=== PATIENT | female | born 1950 | race African-American/Black ===

== ENCOUNTER 2018-03-02 17:16 | Inpatient (IN) | payer MEDICARE, OTHER ==
[~2018-03-02] VITALS: Ht 166.4 cm; Wt 107.5 kg
--- NOTE | 2018-03-02 17:42 | PHYS DOC ---
Adult General Chief Complaint Chief Complaint: WOUND CHECK HPI HPI Patient is a 67 year old female who presents from the long term where she resides with complaints of a right foot wound. The patient has had the wound for many weeks. [facility] staff reported that the wound has not been improving and sent the patient to the emergency department for admission and wound care consultation. The patient has diabetic neuropathy. She does not complain of any pain in the area. Patient denies fevers chills. She denied chest pain or shortness of breath. She is noted have lower extremity edema bilaterally which is worse in the foot of concern. She does not endorse any worsening orthopnea or shortness of breath symptoms. At baseline, the patient primarily ambulates with a wheelchair but states she is able to walk with assistance as well. Review of Systems Review of Systems Constitutional: Denies fever Eyes: Denies change in visual acuity HENT: Denies Respiratory: Denies Cardiovascular: No additional info GI: Denies abdominal pain : Denies dysuria Musculoskeletal: Denies back pain Integument: Denies rash Neurologic: Denies headache Endocrine: Denies polyuria All other systems were reviewed and found to be within normal limits, except as documented in this note. Current Medications Current Medications Allergies Allergies Physical Exam Physical Exam Constitutional: Well developed, well nourished, no acute distress HENT: Normocephalic, atraumatic, bilateral external ears normal Eyes: PERRLA, EOMI, conjunctiva normal Neck: Normal range of motion, no tenderness Cardiovascular:Heart rate regular rhythm, no murmur Lungs & Thorax: Bilateral breath sounds clear to auscultation Abdomen: Bowel sounds normal, soft, no tenderness Skin: Warm, dry, no erythema, no rash Back: No tenderness, no CVA tenderness Extremities: Bilateral lower extremity edema. Over the medial aspect of the right heel there is a clean and dry dressing. When removed, there is a 5 x 6 cm hemorrhagic bulla. There is no sign of infection. Psychologic: Affect normal, judgement normal, mood normal Current Patient Data Vital Signs Vital Signs Date Time Temp Pulse Resp B/P (MAP) Pulse Ox O2 Delivery O2 Flow Rate FiO2 03/02/18 17:28 98.3 91 18 152/71 (98) 91 Room Air 98.3 Lab Values Laboratory Tests Test 03/02/18 17:50 White Blood Count 11.7 x10^3/uL (4.0-11.0) H Red Blood Count 4.19 x10^6/uL (3.50-5.40) Hemoglobin 11.6 g/dL (12.0-15.5) L Hematocrit 35.0 % (36.0-47.0) L Mean Corpuscular Volume 84 fL (79-100) Mean Corpuscular Hemoglobin 28 pg (25-35) Mean Corpuscular Hemoglobin Concent 33 g/dL (31-37) Red Cell Distribution Width 15.5 % (11.5-14.5) H Platelet Count 355 x10^3/uL (140-400) Neutrophils (%) (Auto) 56 % (31-73) Lymphocytes (%) (Auto) 35 % (24-48) Monocytes (%) (Auto) 6 % (0-9) Eosinophils (%) (Auto) 3 % (0-3) Basophils (%) (Auto) 1 % (0-3) Neutrophils # (Auto) 6.5 x10^3uL (1.8-7.7) Lymphocytes # (Auto) 4.1 x10^3/uL (1.0-4.8) Monocytes # (Auto) 0.7 x10^3/uL (0.0-1.1) Eosinophils # (Auto) 0.3 x10^3/uL (0.0-0.7) Basophils # (Auto) 0.1 x10^3/uL (0.0-0.2) Sodium Level 145 mmol/L (136-145) Potassium Level 3.3 mmol/L (3.5-5.1) L Chloride Level 106 mmol/L (98-107) Carbon Dioxide Level 27 mmol/L (21-32) Anion Gap 12 (6-14) Blood Urea Nitrogen 25 mg/dL (7-20) H Creatinine 1.7 mg/dL (0.6-1.0) H Estimated GFR (Cockcroft-Gault) 36.5 Glucose Level 90 mg/dL (70-99) Calcium Level 8.3 mg/dL (8.5-10.1) L CA-Cqr-X-Type Natriuretic Peptide 469 pg/mL (0-124) H Prealbumin 24.2 mg/dL (16.0-42.0) Laboratory Tests 03/02/18 17:50 Laboratory Tests 03/02/18 17:50 EKG EKG [] Radiology/Procedures Radiology/Procedures No DVT seen on bilateral doppler study of LE's. Course & Med Decision Making Course & Med Decision Making Pertinent Labs and Imaging studies reviewed. (See chart for details) Patient is seen and examined. There are no objective concerns for infection. The patient does have bilateral lower extremity edema that is worse on the left compared to the right. Her calves are nontender but she also has diabetic neuropathy. In the emergency department, a lateral duplex studies are ordered. Basic labs are ordered. I spoke with Dr. Arevalo regarding admission. Bridge orders are placed. Consult for wound care nurse to see patient is also placed. Dragon Disclaimer Dragon Disclaimer This electronic medical record was generated, in whole or in part, using a voice recognition dictation system. BELKYS BENAVIDES DO Mar 02, 2018 17:42
[2018-03-02] MEDS ORDERED: ONDANSETRON PF 4 MG/2 ML VIAL. IV PRN (18:00)
[2018-03-02] MEDS ORDERED: ACETAMINOPHEN 325 MG TABLET. PO PRN ×2 (18:00→23:30)
[2018-03-02 18:04] LABS: BASO # 0.1 x10^3/uL (0.0-0.2); BASO % 1 % (0-3); EOS # 0.3 x10^3/uL (0.0-0.7); EOS % 3 % (0-3); HEMOGLOBIN 11.6 g/dL (12.0-15.5); LYMPH # 4.1 x10^3/uL (1.0-4.8); LYMPH % 35 % (24-48); MEAN CORPUSCULAR HEMOGLOBIN 28 pg (25-35); MEAN CORPUSCULAR HGB CONC 33 g/dL (31-37); MEAN CORPUSCULAR VOLUME 84 fL (79-100); MONO # 0.7 x10^3/uL (0.0-1.1); MONO % 6 % (0-9); NEUT # 6.5 x10^3uL (1.8-7.7); NEUT % 56 % (31-73); PLATELET COUNT 355 x10^3/uL (140-400); RED BLOOD COUNT 4.19 x10^6/uL (3.50-5.40); RED CELL DISTRIBUTION WIDTH 15.5 % (11.5-14.5); WHITE BLOOD COUNT 11.7 x10^3/uL (4.0-11.0)
[2018-03-02] MEDS ORDERED: FAMO20TA5 PO (18:13)
[2018-03-02] MEDS ORDERED: GABA-587 PO (18:13)
[2018-03-02] MEDS ORDERED: INSU100I32 SQ (18:13)
[2018-03-02] MEDS ORDERED: METO50TA6 PO (18:13)
[2018-03-02] MEDS ORDERED: MULT1TAB52 PO (18:13)
[2018-03-02] MEDS ORDERED: ATOR40TA59 PO (18:13)
[2018-03-02] MEDS ORDERED: LORA10TA3 PO (18:13)
[2018-03-02] MEDS ORDERED: LEVO137T2 PO (18:13)
[2018-03-02] MEDS ORDERED: INSU100V31 SQ (18:13)
[2018-03-02] MEDS ORDERED: AMLO5TAB4 PO (18:13)
[2018-03-02] MEDS ORDERED: LOSA1TAB19 PO (18:13)
[2018-03-02] MEDS ORDERED: HYDR25SU18 RC (18:13)
[2018-03-02] MEDS ORDERED: MAG355OR12 PO (18:13)
[2018-03-02] MEDS ORDERED: ACET325T9 PO (18:13)
[2018-03-02] MEDS ORDERED: CALC200T98 PO (18:13)
[2018-03-02 18:17] LABS: CALCIUM 8.3 mg/dL (8.5-10.1); CREATININE 1.7 mg/dL (0.6-1.0); GFR 36.5; POTASSIUM 3.3 mmol/L (3.5-5.1)
[2018-03-02 19:00] VITALS: BP 137/70
--- NOTE | 2018-03-02 19:08 | RAD ---
Bilateral Lower Extremity Venous Doppler Ultrasound History: Lower extremity edema Comparison: None Procedure: Color flow, duplex, spectral analysis and 2D images are obtained with and without compression in the area of the common femoral vein, superficial femoral vein - femoral vein junction, main femoral vein (superficial femoral vein) and popliteal vein. Veins of the proximal calf are also imaged. Findings: There is normal duplex flow, color flow and compressibility of all visualized vein segments. No evidence of deep venous thrombus is present. Impression: No evidence of DVT. Electronically signed by: Jaren Boateng III, MD (03/02/2018 7:05 PM) [id number]
[2018-03-02] MEDS ORDERED: INFLUENZA VAX SCREEN BY RX. MC ONE (21:00)
[2018-03-02 23:00] VITALS: BP 147/67
--- NOTE | 2018-03-02 23:24 | PDOC1 ---
History and Physical Date of Admission Date of Admission DATE: 03/02/18 TIME: 23:23 Identification/Chief Complaint Chief Complaint CC SEEN IN ER , Complaints of a right foot wound. for many weeks. long term staff reported that the wound has not been improving and sent the patient to the emergency department for admission and wound care consultation. The patient has diabetic neuropathy. . Patient denies fevers chills. Past Medical History Cardiovascular: HTN, Hyperlipidemia Musculoskeletal: Osteoarthritis Infectious disease: No pertinent hx ENT: No pertinent hx Endocrine: Diabetes Dermatology: Cellulitis Past Surgical History Past Surgical History: Cholecystectomy Family History Family History: Diabetes, Hypertension Social History Smoke: No ALCOHOL: none Drugs: None Current Problem List Problem List Problems Medical Problems: (1) Diabetic foot ulcers Status: Acute Current Medications Current Medications Current Medications Ondansetron HCl (Zofran) 4 mg PRN Q8HRS PRN IV NAUSEA/VOMITING; Start 03/02/18 at 18:00; Stop 03/03/18 at 17:59 Acetaminophen (Tylenol) 650 mg PRN Q4HRS PRN PO FEVER Last administered on 03/02at 21:41; Start 03/02/18 at 18:00; Stop 03/03/18 at 17:59 Oxycodone HCl (Roxicodone) 5 mg PRN Q6HRS PRN PO pain unrelieved by tylenol; Start 03/02/18 at 18:00 Info (Do NOT chart on this placeholder) 1 each 1X ONCE MC ; Start 03/02/18 at 21:00; Stop 03/02/18 at 21:01; Status UNV Influenza Virus Vaccine (Afluria Trivalent [id number] Syringe) 0.5 ml ONCE ONCE VAX IM ; Start 03/03/18 at 09:00; Stop 03/03/18 at 09:01 Active Scripts Active Reported Anusol-Hc (Hydrocortisone Acetate) 25 Mg Supp.rect 1 Supp RC DAILY Maalox Maximum Strength Susp (Mag Hydrox/Al Hydrox/Simeth) 355 Ml Oral.susp 30 Ml PO PRN Q6HRS PRN Tylenol (Acetaminophen) 325 Mg Tablet 2 Tab PO PRN Q4HRS Gabapentin 400 Mg Capsule 400 Mg PO TID Norvasc (Amlodipine Besylate) 5 Mg Tablet 1 Tab PO DAILY Atorvastatin Calcium 40 Mg Tablet 1 Tab PO QHS Metoprolol Tartrate 50 Mg Tablet 1 Tab PO BID Famotidine 20 Mg Tablet 20 Mg PO HS Multivitamins (Multivitamin) 1 Each Tablet 1 Tab PO DAILY Calcium Antacid (Calcium Carbonate) 200 Mg Tab.chew 2 Tab PO TID PRN PRN Losartan-Hctz 50-12.5 Mg Tab (Losartan/Hydrochlorothiazide) 1 Each Tablet 1 Tab PO DAILY Loratadine 10 Mg Tablet 1 Tab PO DAILY Synthroid (Levothyroxine Sodium) 137 Mcg Tablet 1 Tab PO DAILY Novolog (Insulin Aspart) 100 Unit/1 Ml Vial 35 Unit SQ TIDAC Basaglar Kwikpen U-100 (Insulin Glargine,Hum.rec.anlog) 100 Unit/1 Ml Insuln.pen 60 Unit SQ BID Allergies Allergies: Coded Allergies: Sulfa (Sulfonamide Antibiotics) (Verified Allergy, Intermediate, itching, 03/02/18) ROS Review of System Review of Systems Review of Systems Constitutional: Denies fever Eyes: Denies change in visual acuity HENT: Denies Respiratory: Denies Cardiovascular: No additional info GI: Denies abdominal pain : Denies dysuria Musculoskeletal: Denies back pain Integument: Denies rash Neurologic: Denies headache Endocrine: Denies polyuria 14 PT systems were reviewed and found to be within normal limits, except as documented . General: YES: Fatigue Eyes: Yes Blurry vision ENDOCRINE: No: Breast Changes, Galactorrhea, Hair Pattern Changes, Hot Flashes , Malaise/lethargy, Mood Swings, Palpitations, Polydipsia/polyuria, Skin Changes , Temperature Intolerance, Unexpected Weight Changes, Other Gastrointestinal: No Nausea, No Vomiting, No Abdominal Pain, No Diarrhea, No Constipation, No Melena, No Hematochezia, No Other Neurological: Yes Gait Disturbance, Yes Numbness/Tingling Skin: Yes Skin Lesion Changes Physical Exam Physical Exam Physical Exam Physical Exam Constitutional: Well developed, well nourished, no acute distress HENT: Normocephalic, atraumatic, bilateral external ears normal Eyes: PERRLA, EOMI, conjunctiva normal Neck: Normal range of motion, no tenderness Cardiovascular:Heart rate regular rhythm, no murmur Lungs & Thorax: Bilateral breath sounds clear to auscultation Abdomen: Bowel sounds normal, soft, no tenderness Skin: Warm, dry, no erythema, no rash Back: No tenderness, no CVA tenderness Extremities: Bilateral lower extremity edema. Over the medial aspect of the right heel there is a clean and dry dressing. When removed, there is a 5 x 6 cm hemorrhagic bulla. There is no sign of infection. Psychologic: Affect normal, judgement normal, mood normal General: Alert, Oriented X3, moderate distress HEENT: Atraumatic, PERRLA, EOMI Lungs: Clear to auscultation, Normal air movement Breasts: Not examined Abdomen: Normal bowel sounds, Soft Rectal Exam: not examined PELVIC: Examination not indicated Neuro: Cranial nerves 3-12 NL Psych/Mental Status: Mood NL Vitals Vitals Vital Signs Date Time Temp Pulse Resp B/P (MAP) Pulse Ox O2 Delivery O2 Flow Rate FiO2 03/02/18 19:00 97.9 82 18 137/70 (92) 94 Nasal Cannula 2.0 97.9 Labs Labs Laboratory Tests Test 03/02/18 17:50 03/02/18 21:28 White Blood Count 11.7 x10^3/uL (4.0-11.0) Red Blood Count 4.19 x10^6/uL (3.50-5.40) Hemoglobin 11.6 g/dL (12.0-15.5) Hematocrit 35.0 % (36.0-47.0) Mean Corpuscular Volume 84 fL (79-100) Mean Corpuscular Hemoglobin 28 pg (25-35) Mean Corpuscular Hemoglobin Concent 33 g/dL (31-37) Red Cell Distribution Width 15.5 % (11.5-14.5) Platelet Count 355 x10^3/uL (140-400) Neutrophils (%) (Auto) 56 % (31-73) Lymphocytes (%) (Auto) 35 % (24-48) Monocytes (%) (Auto) 6 % (0-9) Eosinophils (%) (Auto) 3 % (0-3) Basophils (%) (Auto) 1 % (0-3) Neutrophils # (Auto) 6.5 x10^3uL (1.8-7.7) Lymphocytes # (Auto) 4.1 x10^3/uL (1.0-4.8) Monocytes # (Auto) 0.7 x10^3/uL (0.0-1.1) Eosinophils # (Auto) 0.3 x10^3/uL (0.0-0.7) Basophils # (Auto) 0.1 x10^3/uL (0.0-0.2) Sodium Level 145 mmol/L (136-145) Potassium Level 3.3 mmol/L (3.5-5.1) Chloride Level 106 mmol/L (98-107) Carbon Dioxide Level 27 mmol/L (21-32) Anion Gap 12 (6-14) Blood Urea Nitrogen 25 mg/dL (7-20) Creatinine 1.7 mg/dL (0.6-1.0) Estimated GFR (Cockcroft-Gault) 36.5 Glucose Level 90 mg/dL (70-99) Calcium Level 8.3 mg/dL (8.5-10.1) JJ-Msk-B-Type Natriuretic Peptide 469 pg/mL (0-124) Prealbumin 24.2 mg/dL (16.0-42.0) Glucose (Fingerstick) 63 mg/dL (70-99) Laboratory Tests Test 03/02/18 17:50 03/02/18 21:28 White Blood Count 11.7 x10^3/uL (4.0-11.0) Red Blood Count 4.19 x10^6/uL (3.50-5.40) Hemoglobin 11.6 g/dL (12.0-15.5) Hematocrit 35.0 % (36.0-47.0) Mean Corpuscular Volume 84 fL (79-100) Mean Corpuscular Hemoglobin 28 pg (25-35) Mean Corpuscular Hemoglobin Concent 33 g/dL (31-37) Red Cell Distribution Width 15.5 % (11.5-14.5) Platelet Count 355 x10^3/uL (140-400) Neutrophils (%) (Auto) 56 % (31-73) Lymphocytes (%) (Auto) 35 % (24-48) Monocytes (%) (Auto) 6 % (0-9) Eosinophils (%) (Auto) 3 % (0-3) Basophils (%) (Auto) 1 % (0-3) Neutrophils # (Auto) 6.5 x10^3uL (1.8-7.7) Lymphocytes # (Auto) 4.1 x10^3/uL (1.0-4.8) Monocytes # (Auto) 0.7 x10^3/uL (0.0-1.1) Eosinophils # (Auto) 0.3 x10^3/uL (0.0-0.7) Basophils # (Auto) 0.1 x10^3/uL (0.0-0.2) Sodium Level 145 mmol/L (136-145) Potassium Level 3.3 mmol/L (3.5-5.1) Chloride Level 106 mmol/L (98-107) Carbon Dioxide Level 27 mmol/L (21-32) Anion Gap 12 (6-14) Blood Urea Nitrogen 25 mg/dL (7-20) Creatinine 1.7 mg/dL (0.6-1.0) Estimated GFR (Cockcroft-Gault) 36.5 Glucose Level 90 mg/dL (70-99) Calcium Level 8.3 mg/dL (8.5-10.1) SP-Jnm-H-Type Natriuretic Peptide 469 pg/mL (0-124) Prealbumin 24.2 mg/dL (16.0-42.0) Glucose (Fingerstick) 63 mg/dL (70-99) Images Images Bilateral Lower Extremity Venous Doppler Ultrasound History: Lower extremity edema Comparison: None Procedure: Color flow, duplex, spectral analysis and 2D images are obtained with and without compression in the area of the common femoral vein, superficial femoral vein - femoral vein junction, main femoral vein (superficial femoral vein) and popliteal vein. Veins of the proximal calf are also imaged. Findings: There is normal duplex flow, color flow and compressibility of all visualized vein segments. No evidence of deep venous thrombus is present. Impression: No evidence of DVT. Electronically signed by: Jaren Boateng III, MD (03/02/2018 7:05 PM) [facility] VTE Prophylaxis Ordered VTE Prophylaxis Devices: Yes VTE Pharmacological Prophylaxi: Yes Assessment/Plan Assessment/Plan IMPRESSION 1 Diabetic foot wound with cellulitis 2. htn 3. hyperlipidemia 4. morbid obesity 5. acute chf DD plan 1. wound culture 2. emperic iv antibiotics 3. ID consult 4, wound care nurse consult 5. glucose control 6. sq lovenox dvt prophylaxis 7. ECHO 8. IV LASIX 40MG BID 9. OFF LOADING OF FOOT 10. ARTERIAL DOPPLER BOTH LEGS ANNMARIE DACOSTA MD Mar 02, 2018 23:24
[2018-03-02] MEDS ORDERED: MAG HYDROX/ALUMINUM HYD/SIMETH 30 ML ORAL.SUSP PO PRN (23:30)
[2018-03-02] MEDS ORDERED: CALCIUM CARBONATE 500 MG TAB.CHEW PO PRN (23:30)
[2018-03-02] MEDS: ENOXAPARIN 40 MG/0.4 ML SYRINGE. SQ SCH (23:45)
[2018-03-02] MEDS ORDERED: POTASSIUM CHLORIDE 20 MEQ TABLET.ER. PO ONE (23:45)
[2018-03-03] MEDS ORDERED: METO50TA6 PO (00:02)
[2018-03-03] MEDS ORDERED: ATOR40TA59 PO (00:02)
[2018-03-03] MEDS ORDERED: AMLO5TAB4 PO (00:02)
[2018-03-03] MEDS ORDERED: CALC215T4 PO (00:02)
[2018-03-03] MEDS ORDERED: LEVO137T2 PO (00:02)
[2018-03-03] MEDS ORDERED: INSU100I13 SQ (00:02)
[2018-03-03] MEDS ORDERED: HYDR25SU18 RC (00:02)
[2018-03-03] MEDS ORDERED: MAG355OR11 PO (00:02)
[2018-03-03] MEDS ORDERED: INSU100C4 SQ (00:02)
[2018-03-03] MEDS ORDERED: LORA10TA3 PO (00:02)
[2018-03-03] MEDS ORDERED: GABA-587 PO (00:02)
[2018-03-03] MEDS ORDERED: ACET325T21 PO (00:02)
[2018-03-03] MEDS ORDERED: FAMO20TA5 PO (00:02)
[2018-03-03] MEDS ORDERED: LOSA1TAB19 PO (00:02)
[2018-03-03] MEDS: PIPERACILLIN/TAZOBACTAM 3.375 GM in IV NORMAL SALINE 50ML 50 ML IV SCH ×5 (01:09→20:43)
[2018-03-03 03:00] VITALS: BP 189/90
[2018-03-03 06:53] LABS: BASO # 0.1 x10^3/uL (0.0-0.2); BASO % 1 % (0-3); EOS # 0.2 x10^3/uL (0.0-0.7); EOS % 2 % (0-3); HEMOGLOBIN 11.8 g/dL (12.0-15.5); LYMPH # 2.5 x10^3/uL (1.0-4.8); LYMPH % 25 % (24-48); MEAN CORPUSCULAR HEMOGLOBIN 29 pg (25-35); MEAN CORPUSCULAR HGB CONC 34 g/dL (31-37); MEAN CORPUSCULAR VOLUME 84 fL (79-100); MONO # 0.6 x10^3/uL (0.0-1.1); MONO % 6 % (0-9); NEUT # 6.5 x10^3uL (1.8-7.7); NEUT % 66 % (31-73); PLATELET COUNT 349 x10^3/uL (140-400); RED BLOOD COUNT 4.16 x10^6/uL (3.50-5.40); RED CELL DISTRIBUTION WIDTH 15.8 % (11.5-14.5); WHITE BLOOD COUNT 9.9 x10^3/uL (4.0-11.0)
[2018-03-03 07:17] LABS: CALCIUM 8.8 mg/dL (8.5-10.1); CREATININE 1.6 mg/dL (0.6-1.0); GFR 39.1; POTASSIUM 4.4 mmol/L (3.5-5.1)
[2018-03-03 07:20] VITALS: BP 162/77
[2018-03-03] MEDS: INSULIN LISPRO 300 UNITS/3 ML INSULN.PEN. SQ SCH ×3 (08:00→18:17)
[2018-03-03] MEDS: hydroCHLOROthiazide 12.5 MG CAPSULE PO SCH (08:30)
[2018-03-03] MEDS: amLODIPine BESYLATE 5 MG TABLET PO SCH (08:30)
[2018-03-03] MEDS: MULTIVITAMIN with MINERAL TABLET. PO SCH (08:30)
[2018-03-03] MEDS: CETIRIZINE HCL 10 MG TABLET. PO SCH (08:30)
[2018-03-03] MEDS: LEVOTHYROXINE 137 MCG TABLET PO SCH (08:30)
[2018-03-03] MEDS: METOPROLOL TART IMMED RELEASE 50 MG TABLET. PO SCH ×2 (08:30→20:42)
[2018-03-03] MEDS: LOSARTAN POTASSIUM 50 MG TABLET. PO SCH (08:30)
[2018-03-03] MEDS: GABAPENTIN 400 MG CAPSULE. PO SCH ×2 (08:30→20:42)
[2018-03-03] MEDS: FUROSEMIDE 40 MG/4 ML VIAL. IVP SCH ×2 (09:00→18:07)
[2018-03-03] MEDS ORDERED: INSULIN GLARGINE 300 UNITS/3 ML INSULN.PEN. SQ SCH (09:00)
[2018-03-03] MEDS ORDERED: HYDROCORTISONE ACETATE 25 MG SUPP.RECT PR SCH (09:00)
--- NOTE | 2018-03-03 10:13 | RAD ---
Bilateral lower extremity arterial ultrasound History: Peripheral vascular disease, right foot wound, diabetes, hypertension, smoker Findings: Multiple grayscale, color, and duplex spectral analysis sonographic images were acquired of the lower extremity arteries bilaterally. There are no previous similar exams. On the right, there are abnormal monophasic waveforms beyond the mid superficial femoral artery other than triphasic waveform of the popliteal artery. On the left, there are abnormal monophasic waveforms beyond the proximal superficial femoral artery. There is diffuse plaque bilaterally. No focal vessel occlusion or significant focal stenosis is demonstrated. Velocities in cm/sec: RIGHT Common femoral artery 132 Profunda femoris artery 130 Proximal SFA 185 Mid SFA 103 Distal SFA 122 Popliteal artery 143 Anterior tibial artery 66 Dorsalis pedis artery 90 Posterior tibial artery 64 Peroneal artery 56 LEFT: Common femoral artery 136 Profunda femoris artery 119 Proximal SFA 144 Mid SFA 133 Distal SFA 86 Popliteal artery 143 Anterior tibial artery 133 Dorsalis pedis artery 132 Posterior tibial artery 106 Peroneal artery 76 Impression: 1. No focal vessel occlusion or significant focal stenosis is demonstrated although diffuse plaque and abnormal monophasic waveforms beyond the mid to distal superficial femoral arteries. Electronically signed by: Felipe Gonzalez MD (03/03/2018 10:09 AM) [id number]
--- NOTE | 2018-03-03 10:45 | PDOC ---
PROGRESS NOTES History of Present Illness History of Present Illness Assessment/Plan Assessment/Plan IMPRESSION 1 Diabetic foot wound with cellulitis 2. htn 3. hyperlipidemia 4. morbid obesity 5. acute chf DD 6. No focal arterial occlusion or significant focal stenosis is demonstrated although diffuse plaque and abnormal monophasic waveforms beyond the mid to distal superficial femoral arteries. plan 1. wound culture 2. emperic iv antibiotics 3. ID consult 4, wound care nurse consult 5. glucose control 6. sq lovenox dvt prophylaxis 7. ECHO 8. IV LASIX 40MG BID 9. OFF LOADING OF FOOT 10. ARTERIAL DOPPLER BOTH LEGS noted Vitals Vitals Vital Signs Date Time Temp Pulse Resp B/P (MAP) Pulse Ox O2 Delivery O2 Flow Rate FiO2 03/03/18 07:20 98.5 77 16 162/77 (105) 90 Room Air 98.5 03/03/18 03:00 2.0 Physical Exam General: Alert, Oriented X3, Cooperative, No acute distress, moderate distress Heart: Regular rate Lungs: Clear Abdomen: Normal bowel sounds, Soft Extremities: No cyanosis, Normal pulses Labs LABS Bilateral lower extremity arterial ultrasound History: Peripheral vascular disease, right foot wound, diabetes, hypertension, smoker Findings: Multiple grayscale, color, and duplex spectral analysis sonographic images were acquired of the lower extremity arteries bilaterally. There are no previous similar exams. On the right, there are abnormal monophasic waveforms beyond the mid superficial femoral artery other than triphasic waveform of the popliteal artery. On the left, there are abnormal monophasic waveforms beyond the proximal superficial femoral artery. There is diffuse plaque bilaterally. No focal vessel occlusion or significant focal stenosis is demonstrated. Velocities in cm/sec: RIGHT Common femoral artery 132 Profunda femoris artery 130 Proximal SFA 185 Mid SFA 103 Distal SFA 122 Popliteal artery 143 Anterior tibial artery 66 Dorsalis pedis artery 90 Posterior tibial artery 64 Peroneal artery 56 LEFT: Common femoral artery 136 Profunda femoris artery 119 Proximal SFA 144 Mid SFA 133 Distal SFA 86 Popliteal artery 143 Anterior tibial artery 133 Dorsalis pedis artery 132 Posterior tibial artery 106 Peroneal artery 76 Impression: 1. No focal vessel occlusion or significant focal stenosis is demonstrated although diffuse plaque and abnormal monophasic waveforms beyond the mid to distal superficial femoral arteries. Electronically signed by: Felipe Gonzalez MD (03/03/2018 10:09 AM) [id number] Laboratory Tests Test 03/02/18 17:50 03/02/18 21:28 03/03/18 06:30 03/03/18 07:37 White Blood Count 11.7 x10^3/uL (4.0-11.0) 9.9 x10^3/uL (4.0-11.0) Red Blood Count 4.19 x10^6/uL (3.50-5.40) 4.16 x10^6/uL (3.50-5.40) Hemoglobin 11.6 g/dL (12.0-15.5) 11.8 g/dL (12.0-15.5) Hematocrit 35.0 % (36.0-47.0) 35.0 % (36.0-47.0) Mean Corpuscular Volume 84 fL (79-100) 84 fL (79-100) Mean Corpuscular Hemoglobin 28 pg (25-35) 29 pg (25-35) Mean Corpuscular Hemoglobin Concent 33 g/dL (31-37) 34 g/dL (31-37) Red Cell Distribution Width 15.5 % (11.5-14.5) 15.8 % (11.5-14.5) Platelet Count 355 x10^3/uL (140-400) 349 x10^3/uL (140-400) Neutrophils (%) (Auto) 56 % (31-73) 66 % (31-73) Lymphocytes (%) (Auto) 35 % (24-48) 25 % (24-48) Monocytes (%) (Auto) 6 % (0-9) 6 % (0-9) Eosinophils (%) (Auto) 3 % (0-3) 2 % (0-3) Basophils (%) (Auto) 1 % (0-3) 1 % (0-3) Neutrophils # (Auto) 6.5 x10^3uL (1.8-7.7) 6.5 x10^3uL (1.8-7.7) Lymphocytes # (Auto) 4.1 x10^3/uL (1.0-4.8) 2.5 x10^3/uL (1.0-4.8) Monocytes # (Auto) 0.7 x10^3/uL (0.0-1.1) 0.6 x10^3/uL (0.0-1.1) Eosinophils # (Auto) 0.3 x10^3/uL (0.0-0.7) 0.2 x10^3/uL (0.0-0.7) Basophils # (Auto) 0.1 x10^3/uL (0.0-0.2) 0.1 x10^3/uL (0.0-0.2) Sodium Level 145 mmol/L (136-145) 144 mmol/L (136-145) Potassium Level 3.3 mmol/L (3.5-5.1) 4.4 mmol/L (3.5-5.1) Chloride Level 106 mmol/L (98-107) 108 mmol/L (98-107) Carbon Dioxide Level 27 mmol/L (21-32) 28 mmol/L (21-32) Anion Gap 12 (6-14) 8 (6-14) Blood Urea Nitrogen 25 mg/dL (7-20) 20 mg/dL (7-20) Creatinine 1.7 mg/dL (0.6-1.0) 1.6 mg/dL (0.6-1.0) Estimated GFR (Cockcroft-Gault) 36.5 39.1 Glucose Level 90 mg/dL (70-99) 123 mg/dL (70-99) Calcium Level 8.3 mg/dL (8.5-10.1) 8.8 mg/dL (8.5-10.1) VV-Nty-G-Type Natriuretic Peptide 469 pg/mL (0-124) Prealbumin 24.2 mg/dL (16.0-42.0) Free Thyroxine 0.91 ng/dL (0.76-1.46) Glucose (Fingerstick) 63 mg/dL (70-99) 141 mg/dL (70-99) Assessment and Plan Assessmemt and Plan Problems Medical Problems: (1) Diabetic foot ulcers Status: Acute Comment Review of Relevant I have reviewed the following items lia (where applicable) has been applied. Labs Laboratory Tests Test 03/02/18 17:50 03/02/18 21:28 03/03/18 06:30 03/03/18 07:37 White Blood Count 11.7 x10^3/uL (4.0-11.0) 9.9 x10^3/uL (4.0-11.0) Red Blood Count 4.19 x10^6/uL (3.50-5.40) 4.16 x10^6/uL (3.50-5.40) Hemoglobin 11.6 g/dL (12.0-15.5) 11.8 g/dL (12.0-15.5) Hematocrit 35.0 % (36.0-47.0) 35.0 % (36.0-47.0) Mean Corpuscular Volume 84 fL (79-100) 84 fL (79-100) Mean Corpuscular Hemoglobin 28 pg (25-35) 29 pg (25-35) Mean Corpuscular Hemoglobin Concent 33 g/dL (31-37) 34 g/dL (31-37) Red Cell Distribution Width 15.5 % (11.5-14.5) 15.8 % (11.5-14.5) Platelet Count 355 x10^3/uL (140-400) 349 x10^3/uL (140-400) Neutrophils (%) (Auto) 56 % (31-73) 66 % (31-73) Lymphocytes (%) (Auto) 35 % (24-48) 25 % (24-48) Monocytes (%) (Auto) 6 % (0-9) 6 % (0-9) Eosinophils (%) (Auto) 3 % (0-3) 2 % (0-3) Basophils (%) (Auto) 1 % (0-3) 1 % (0-3) Neutrophils # (Auto) 6.5 x10^3uL (1.8-7.7) 6.5 x10^3uL (1.8-7.7) Lymphocytes # (Auto) 4.1 x10^3/uL (1.0-4.8) 2.5 x10^3/uL (1.0-4.8) Monocytes # (Auto) 0.7 x10^3/uL (0.0-1.1) 0.6 x10^3/uL (0.0-1.1) Eosinophils # (Auto) 0.3 x10^3/uL (0.0-0.7) 0.2 x10^3/uL (0.0-0.7) Basophils # (Auto) 0.1 x10^3/uL (0.0-0.2) 0.1 x10^3/uL (0.0-0.2) Sodium Level 145 mmol/L (136-145) 144 mmol/L (136-145) Potassium Level 3.3 mmol/L (3.5-5.1) 4.4 mmol/L (3.5-5.1) Chloride Level 106 mmol/L (98-107) 108 mmol/L (98-107) Carbon Dioxide Level 27 mmol/L (21-32) 28 mmol/L (21-32) Anion Gap 12 (6-14) 8 (6-14) Blood Urea Nitrogen 25 mg/dL (7-20) 20 mg/dL (7-20) Creatinine 1.7 mg/dL (0.6-1.0) 1.6 mg/dL (0.6-1.0) Estimated GFR (Cockcroft-Gault) 36.5 39.1 Glucose Level 90 mg/dL (70-99) 123 mg/dL (70-99) Calcium Level 8.3 mg/dL (8.5-10.1) 8.8 mg/dL (8.5-10.1) QM-Iwg-N-Type Natriuretic Peptide 469 pg/mL (0-124) Prealbumin 24.2 mg/dL (16.0-42.0) Free Thyroxine 0.91 ng/dL (0.76-1.46) Glucose (Fingerstick) 63 mg/dL (70-99) 141 mg/dL (70-99) Laboratory Tests Test 03/02/18 17:50 03/02/18 21:28 03/03/18 06:30 03/03/18 07:37 White Blood Count 11.7 x10^3/uL (4.0-11.0) 9.9 x10^3/uL (4.0-11.0) Red Blood Count 4.19 x10^6/uL (3.50-5.40) 4.16 x10^6/uL (3.50-5.40) Hemoglobin 11.6 g/dL (12.0-15.5) 11.8 g/dL (12.0-15.5) Hematocrit 35.0 % (36.0-47.0) 35.0 % (36.0-47.0) Mean Corpuscular Volume 84 fL (79-100) 84 fL (79-100) Mean Corpuscular Hemoglobin 28 pg (25-35) 29 pg (25-35) Mean Corpuscular Hemoglobin Concent 33 g/dL (31-37) 34 g/dL (31-37) Red Cell Distribution Width 15.5 % (11.5-14.5) 15.8 % (11.5-14.5) Platelet Count 355 x10^3/uL (140-400) 349 x10^3/uL (140-400) Neutrophils (%) (Auto) 56 % (31-73) 66 % (31-73) Lymphocytes (%) (Auto) 35 % (24-48) 25 % (24-48) Monocytes (%) (Auto) 6 % (0-9) 6 % (0-9) Eosinophils (%) (Auto) 3 % (0-3) 2 % (0-3) Basophils (%) (Auto) 1 % (0-3) 1 % (0-3) Neutrophils # (Auto) 6.5 x10^3uL (1.8-7.7) 6.5 x10^3uL (1.8-7.7) Lymphocytes # (Auto) 4.1 x10^3/uL (1.0-4.8) 2.5 x10^3/uL (1.0-4.8) Monocytes # (Auto) 0.7 x10^3/uL (0.0-1.1) 0.6 x10^3/uL (0.0-1.1) Eosinophils # (Auto) 0.3 x10^3/uL (0.0-0.7) 0.2 x10^3/uL (0.0-0.7) Basophils # (Auto) 0.1 x10^3/uL (0.0-0.2) 0.1 x10^3/uL (0.0-0.2) Sodium Level 145 mmol/L (136-145) 144 mmol/L (136-145) Potassium Level 3.3 mmol/L (3.5-5.1) 4.4 mmol/L (3.5-5.1) Chloride Level 106 mmol/L (98-107) 108 mmol/L (98-107) Carbon Dioxide Level 27 mmol/L (21-32) 28 mmol/L (21-32) Anion Gap 12 (6-14) 8 (6-14) Blood Urea Nitrogen 25 mg/dL (7-20) 20 mg/dL (7-20) Creatinine 1.7 mg/dL (0.6-1.0) 1.6 mg/dL (0.6-1.0) Estimated GFR (Cockcroft-Gault) 36.5 39.1 Glucose Level 90 mg/dL (70-99) 123 mg/dL (70-99) Calcium Level 8.3 mg/dL (8.5-10.1) 8.8 mg/dL (8.5-10.1) ZN-Bmm-R-Type Natriuretic Peptide 469 pg/mL (0-124) Prealbumin 24.2 mg/dL (16.0-42.0) Free Thyroxine 0.91 ng/dL (0.76-1.46) Glucose (Fingerstick) 63 mg/dL (70-99) 141 mg/dL (70-99) Medications Current Medications Ondansetron HCl (Zofran) 4 mg PRN Q8HRS PRN IV NAUSEA/VOMITING; Start 03/02/18 at 18:00; Stop 03/03/18 at 17:59 Acetaminophen (Tylenol) 650 mg PRN Q4HRS PRN PO FEVER Last administered on 03/02at 21:41; Start 03/02/18 at 18:00; Stop 03/02/18 at 23:38; Status DC Oxycodone HCl (Roxicodone) 5 mg PRN Q6HRS PRN PO pain unrelieved by tylenol; Start 03/02/18 at 18:00 Info (Do NOT chart on this placeholder) 1 each 1X ONCE MC ; Start 03/02/18 at 21:00; Stop 03/02/18 at 21:01; Status UNV Influenza Virus Vaccine (Afluria Trivalent [id number] Syringe) 0.5 ml ONCE ONCE VAX IM ; Start 03/03/18 at 09:00; Stop 03/03/18 at 09:01; Status DC Acetaminophen (Tylenol) 650 mg PRN Q4HRS PRN PO MILD PAIN / TEMP; Start at 23:30 Amlodipine Besylate (Norvasc) 5 mg DAILY PO ; Start 03/03/18 at 09:00 Atorvastatin Calcium (Lipitor) 40 mg QHS PO ; Start 03/03/18 at 21:00 Calcium Carbonate/ Glycine (Tums) 400 mg TID PRN PRN PO INDIGESTION; Start at 23:30 Famotidine (Pepcid) 20 mg HS PO ; Start 03/03/18 at 21:00 Insulin Glargine (Lantus) 60 units BID SQ ; Start 03/03/18 at 09:00 Levothyroxine Sodium (Synthroid) 137 mcg DAILY07 PO ; Start 03/03/18 at 07:00 Al Hydroxide/Mg Hydroxide (Mylanta Plus Xs) 30 ml PRN Q6HRS PRN PO GAS / BLOATING; Start 03/02/18 at 23:30 Metoprolol Tartrate (Lopressor) 50 mg BID PO ; Start 03/03/18 at 09:00 Gabapentin (Neurontin) 400 mg BID PO ; Start 03/03/18 at 09:00 Hydrocortisone Acetate (Anucort-Hc) 25 mg DAILY MO ; Start 03/03/18 at 09:00 Insulin Human Lispro (HumaLOG) 35 units TIDWMEALS SQ ; Start 03/03/18 at 08:00 Cetirizine HCl (ZyrTEC) 10 mg DAILY PO ; Start 03/03/18 at 09:00 Losartan Potassium (Cozaar) 50 mg DAILY PO ; Start 03/03/18 at 09:00 Multivitamins (Thera M Plus) 1 tab DAILY PO ; Start 03/03/18 at 09:00 Potassium Chloride (Klor-Con) 40 meq 1X ONCE PO Last administered on at 01:09; Start 03/02/18 at 23:45; Stop 03/02/18 at 23:46; Status DC Piperacillin Sod/ Tazobactam Sod 3.375 gm/Sodium Chloride 50 ml @ 100 mls/hr Q6HRS IV Last administered on 03/03/18at 06:00; Start 03/03/18 at 00:00 Hydrochlorothiazide (Microzide) 12.5 mg DAILY PO ; Start 03/03/18 at 09:00 Furosemide (Lasix) 40 mg BID92 IVP ; Start 03/03/18 at 09:00 Enoxaparin Sodium (Lovenox 40mg Syringe) 40 mg QHS SQ Last administered on 03/02at 23:45; Start 03/02/18 at 23:45 Active Scripts Active Reported Anusol-Hc (Hydrocortisone Acetate) 25 Mg Supp.rect 1 Supp RC BID Maalox Advanced Suspension (Mag Hydrox/Aluminum Hyd/Simeth) 355 Ml Oral.susp 355 Ml PO Acetaminophen 325 Mg Tablet 650 Mg PO Gabapentin 400 Mg Capsule 400 Mg PO TID Norvasc (Amlodipine Besylate) 5 Mg Tablet 1 Tab PO DAILY Atorvastatin Calcium 40 Mg Tablet 1 Tab PO QHS Metoprolol Tartrate 50 Mg Tablet 1 Tab PO BID Famotidine 20 Mg Tablet 20 Mg PO HS Calcium Antacid (Calcium Carbonate) 215 Mg Tab.chew 500 Mg PO Losartan-Hctz 50-12.5 Mg Tab (Losartan/Hydrochlorothiazide) 1 Each Tablet 1 Tab PO DAILY Loratadine 10 Mg Tablet 1 Tab PO DAILY Synthroid (Levothyroxine Sodium) 137 Mcg Tablet 1 Tab PO DAILY Novolog (Insulin Aspart) 100 Unit/1 Ml Cartridge 35 Unit SQ TIDAC Lantus Solostar (Insulin Glargine,Hum.rec.anlog) 100 Unit/1 Ml Insuln.pen 60 Unit SQ QHS Anusol-Hc (Hydrocortisone Acetate) 25 Mg Supp.rect 1 Supp RC DAILY Maalox Maximum Strength Susp (Mag Hydrox/Al Hydrox/Simeth) 355 Ml Oral.susp 30 Ml PO PRN Q6HRS PRN Tylenol (Acetaminophen) 325 Mg Tablet 2 Tab PO PRN Q4HRS Gabapentin 400 Mg Capsule 400 Mg PO TID Norvasc (Amlodipine Besylate) 5 Mg Tablet 1 Tab PO DAILY Atorvastatin Calcium 40 Mg Tablet 1 Tab PO QHS Metoprolol Tartrate 50 Mg Tablet 1 Tab PO BID Famotidine 20 Mg Tablet 20 Mg PO HS Multivitamins (Multivitamin) 1 Each Tablet 1 Tab PO DAILY Calcium Antacid (Calcium Carbonate) 200 Mg Tab.chew 2 Tab PO TID PRN PRN Losartan-Hctz 50-12.5 Mg Tab (Losartan/Hydrochlorothiazide) 1 Each Tablet 1 Tab PO DAILY Loratadine 10 Mg Tablet 1 Tab PO DAILY Synthroid (Levothyroxine Sodium) 137 Mcg Tablet 1 Tab PO DAILY Novolog (Insulin Aspart) 100 Unit/1 Ml Vial 35 Unit SQ TIDAC Kishor Adams U-100 (Insulin Glargine,Hum.rec.anlog) 100 Unit/1 Ml Insuln.pen 60 Unit SQ BID Vitals/I & O Vital Sign - Last 24 Hours 03/02/18 03/02/18 03/02/18 03/02/18 17:28 19:00 20:00 23:00 Temp 98.3 97.9 98.7 98.3 97.9 98.7 Pulse 91 82 82 Resp 18 18 18 B/P (MAP) 152/71 (98) 137/70 (92) 147/67 (93) Pulse Ox 91 94 91 O2 Delivery Room Air Nasal Cannula Nasal Cannula Nasal Cannula O2 Flow Rate 2.0 2.0 2.0 03/03/18 03/03/18 03:00 07:20 Temp 98.9 98.5 98.9 98.5 Pulse 84 77 Resp 18 16 B/P (MAP) 189/90 (123) 162/77 (105) Pulse Ox 93 90 O2 Delivery Nasal Cannula Room Air O2 Flow Rate 2.0 Intake and Output 03/02/18 03/02/18 03/03/18 15:00 23:00 07:00 Intake Total 120 ml Balance 120 ml ANNMARIE DACOSTA MD Mar 03, 2018 10:45
[2018-03-03 11:00] VITALS: BP 107/62
--- NOTE | 2018-03-03 11:22 | PDOC2 ---
CONSULT Date of Consult Date of Consult DATE: 03/03/18 TIME: 11:16 Reason for Consult Reason for Consult: RENAL FAILURE Referring Physician Referring Physician: OLESYA Identification/Chief Complaint Chief Complaint FOOT WOUND Source Source: Chart review History of Present Illness Reason for Visit: THIS IS A 67 YR OLD FROM [place] WITH A RIGHT FOOT WOUND THAT IS NOT HEALING. SHE IS ON ANTIBIOTICS FOR THIS NOW. CR OF 1.6 AND K OF 3.3. SHE IS A POOR HISTORIAN AND STATES THAT SHE DOES NOT KNOW HER PCP NOR THAT SHE EVER SEES A DOCTOR. SHE IS NOT AWARE OF ANY CKD. NO NEPHROTOXINS NOTED. NO OTHER HX REPORTED OR NOTED. SHE DOES HAVE A HX OF DM II AND HTN. OCC SOB ALSO NOTED Past Medical History Cardiovascular: HTN, Hyperlipidemia Musculoskeletal: Osteoarthritis Infectious disease: No pertinent hx ENT: No pertinent hx Renal/: Chronic renal insuff Endocrine: Diabetes Dermatology: Cellulitis Past Surgical History Past Surgical History: Cholecystectomy Family History Family History: Diabetes, Hypertension Social History No ALCOHOL: none Drugs: None Current Problem List Problem List Problems Medical Problems: (1) Diabetic foot ulcers Status: Acute Current Medications Current Medications Current Medications Ondansetron HCl (Zofran) 4 mg PRN Q8HRS PRN IV NAUSEA/VOMITING; Start 03/02/18 at 18:00; Stop 03/03/18 at 17:59 Acetaminophen (Tylenol) 650 mg PRN Q4HRS PRN PO FEVER Last administered on 03/02at 21:41; Start 03/02/18 at 18:00; Stop 03/02/18 at 23:38; Status DC Oxycodone HCl (Roxicodone) 5 mg PRN Q6HRS PRN PO pain unrelieved by tylenol; Start 03/02/18 at 18:00 Info (Do NOT chart on this placeholder) 1 each 1X ONCE MC ; Start 03/02/18 at 21:00; Stop 03/02/18 at 21:01; Status UNV Influenza Virus Vaccine (Afluria Trivalent [id number] Syringe) 0.5 ml ONCE ONCE VAX IM ; Start 03/03/18 at 09:00; Stop 03/03/18 at 09:01; Status DC Acetaminophen (Tylenol) 650 mg PRN Q4HRS PRN PO MILD PAIN / TEMP; Start at 23:30 Amlodipine Besylate (Norvasc) 5 mg DAILY PO ; Start 03/03/18 at 09:00 Atorvastatin Calcium (Lipitor) 40 mg QHS PO ; Start 03/03/18 at 21:00 Calcium Carbonate/ Glycine (Tums) 400 mg TID PRN PRN PO INDIGESTION; Start at 23:30 Famotidine (Pepcid) 20 mg HS PO ; Start 03/03/18 at 21:00 Insulin Glargine (Lantus) 60 units BID SQ ; Start 03/03/18 at 09:00 Levothyroxine Sodium (Synthroid) 137 mcg DAILY07 PO ; Start 03/03/18 at 07:00 Al Hydroxide/Mg Hydroxide (Mylanta Plus Xs) 30 ml PRN Q6HRS PRN PO GAS / BLOATING; Start 03/02/18 at 23:30 Metoprolol Tartrate (Lopressor) 50 mg BID PO ; Start 03/03/18 at 09:00 Gabapentin (Neurontin) 400 mg BID PO ; Start 03/03/18 at 09:00 Hydrocortisone Acetate (Anucort-Hc) 25 mg DAILY DC ; Start 03/03/18 at 09:00 Insulin Human Lispro (HumaLOG) 35 units TIDWMEALS SQ ; Start 03/03/18 at 08:00 Cetirizine HCl (ZyrTEC) 10 mg DAILY PO ; Start 03/03/18 at 09:00 Losartan Potassium (Cozaar) 50 mg DAILY PO ; Start 03/03/18 at 09:00 Multivitamins (Thera M Plus) 1 tab DAILY PO ; Start 03/03/18 at 09:00 Potassium Chloride (Klor-Con) 40 meq 1X ONCE PO Last administered on at 01:09; Start 03/02/18 at 23:45; Stop 03/02/18 at 23:46; Status DC Piperacillin Sod/ Tazobactam Sod 3.375 gm/Sodium Chloride 50 ml @ 100 mls/hr Q6HRS IV Last administered on 03/03/18at 06:00; Start 03/03/18 at 00:00 Hydrochlorothiazide (Microzide) 12.5 mg DAILY PO ; Start 03/03/18 at 09:00 Furosemide (Lasix) 40 mg BID92 IVP ; Start 03/03/18 at 09:00 Enoxaparin Sodium (Lovenox 40mg Syringe) 40 mg QHS SQ Last administered on 03/02at 23:45; Start 03/02/18 at 23:45 Active Scripts Active Reported Anusol-Hc (Hydrocortisone Acetate) 25 Mg Supp.rect 1 Supp RC BID Maalox Advanced Suspension (Mag Hydrox/Aluminum Hyd/Simeth) 355 Ml Oral.susp 355 Ml PO Acetaminophen 325 Mg Tablet 650 Mg PO Gabapentin 400 Mg Capsule 400 Mg PO TID Norvasc (Amlodipine Besylate) 5 Mg Tablet 1 Tab PO DAILY Atorvastatin Calcium 40 Mg Tablet 1 Tab PO QHS Metoprolol Tartrate 50 Mg Tablet 1 Tab PO BID Famotidine 20 Mg Tablet 20 Mg PO HS Calcium Antacid (Calcium Carbonate) 215 Mg Tab.chew 500 Mg PO Losartan-Hctz 50-12.5 Mg Tab (Losartan/Hydrochlorothiazide) 1 Each Tablet 1 Tab PO DAILY Loratadine 10 Mg Tablet 1 Tab PO DAILY Synthroid (Levothyroxine Sodium) 137 Mcg Tablet 1 Tab PO DAILY Novolog (Insulin Aspart) 100 Unit/1 Ml Cartridge 35 Unit SQ TIDAC Lantus Solostar (Insulin Glargine,Hum.rec.anlog) 100 Unit/1 Ml Insuln.pen 60 Unit SQ QHS Anusol-Hc (Hydrocortisone Acetate) 25 Mg Supp.rect 1 Supp RC DAILY Maalox Maximum Strength Susp (Mag Hydrox/Al Hydrox/Simeth) 355 Ml Oral.susp 30 Ml PO PRN Q6HRS PRN Tylenol (Acetaminophen) 325 Mg Tablet 2 Tab PO PRN Q4HRS Gabapentin 400 Mg Capsule 400 Mg PO TID Norvasc (Amlodipine Besylate) 5 Mg Tablet 1 Tab PO DAILY Atorvastatin Calcium 40 Mg Tablet 1 Tab PO QHS Metoprolol Tartrate 50 Mg Tablet 1 Tab PO BID Famotidine 20 Mg Tablet 20 Mg PO HS Multivitamins (Multivitamin) 1 Each Tablet 1 Tab PO DAILY Calcium Antacid (Calcium Carbonate) 200 Mg Tab.chew 2 Tab PO TID PRN PRN Losartan-Hctz 50-12.5 Mg Tab (Losartan/Hydrochlorothiazide) 1 Each Tablet 1 Tab PO DAILY Loratadine 10 Mg Tablet 1 Tab PO DAILY Synthroid (Levothyroxine Sodium) 137 Mcg Tablet 1 Tab PO DAILY Novolog (Insulin Aspart) 100 Unit/1 Ml Vial 35 Unit SQ TIDAC Basaglar Kwikpen U-100 (Insulin Glargine,Hum.rec.anlog) 100 Unit/1 Ml Insuln.pen 60 Unit SQ BID Allergies Allergies: Coded Allergies: Sulfa (Sulfonamide Antibiotics) (Verified Allergy, Intermediate, itching, 03/02/18) metronidazole (Verified Allergy, Intermediate, 03/02/18) ROS Review of System UNABLE TO OBTAIN FROM PT Physical Exam General: Alert, Cooperative, No acute distress HEENT: Atraumatic, EOMI, Mucous membr. moist/pink Lungs: Other (DECREASED AT BASES) Heart: Regular rate Abdomen: Normal bowel sounds Extremities: No clubbing Skin: No rashes Neuro: Normal speech, Other (CONFUSED) Psych/Mental Status: Other (CONFUSED) MUSCULOSKELETAL: No deformity, Other (1-2+ LE EDEMA) Vitals VITALS Vital Signs Date Time Temp Pulse Resp B/P (MAP) Pulse Ox O2 Delivery O2 Flow Rate FiO2 03/03/18 07:20 98.5 77 16 162/77 (105) 90 Room Air 98.5 03/03/18 03:00 2.0 Labs Labs Laboratory Tests Test 03/02/18 17:50 03/02/18 21:28 03/03/18 06:30 03/03/18 07:37 White Blood Count 11.7 x10^3/uL (4.0-11.0) 9.9 x10^3/uL (4.0-11.0) Red Blood Count 4.19 x10^6/uL (3.50-5.40) 4.16 x10^6/uL (3.50-5.40) Hemoglobin 11.6 g/dL (12.0-15.5) 11.8 g/dL (12.0-15.5) Hematocrit 35.0 % (36.0-47.0) 35.0 % (36.0-47.0) Mean Corpuscular Volume 84 fL (79-100) 84 fL (79-100) Mean Corpuscular Hemoglobin 28 pg (25-35) 29 pg (25-35) Mean Corpuscular Hemoglobin Concent 33 g/dL (31-37) 34 g/dL (31-37) Red Cell Distribution Width 15.5 % (11.5-14.5) 15.8 % (11.5-14.5) Platelet Count 355 x10^3/uL (140-400) 349 x10^3/uL (140-400) Neutrophils (%) (Auto) 56 % (31-73) 66 % (31-73) Lymphocytes (%) (Auto) 35 % (24-48) 25 % (24-48) Monocytes (%) (Auto) 6 % (0-9) 6 % (0-9) Eosinophils (%) (Auto) 3 % (0-3) 2 % (0-3) Basophils (%) (Auto) 1 % (0-3) 1 % (0-3) Neutrophils # (Auto) 6.5 x10^3uL (1.8-7.7) 6.5 x10^3uL (1.8-7.7) Lymphocytes # (Auto) 4.1 x10^3/uL (1.0-4.8) 2.5 x10^3/uL (1.0-4.8) Monocytes # (Auto) 0.7 x10^3/uL (0.0-1.1) 0.6 x10^3/uL (0.0-1.1) Eosinophils # (Auto) 0.3 x10^3/uL (0.0-0.7) 0.2 x10^3/uL (0.0-0.7) Basophils # (Auto) 0.1 x10^3/uL (0.0-0.2) 0.1 x10^3/uL (0.0-0.2) Sodium Level 145 mmol/L (136-145) 144 mmol/L (136-145) Potassium Level 3.3 mmol/L (3.5-5.1) 4.4 mmol/L (3.5-5.1) Chloride Level 106 mmol/L (98-107) 108 mmol/L (98-107) Carbon Dioxide Level 27 mmol/L (21-32) 28 mmol/L (21-32) Anion Gap 12 (6-14) 8 (6-14) Blood Urea Nitrogen 25 mg/dL (7-20) 20 mg/dL (7-20) Creatinine 1.7 mg/dL (0.6-1.0) 1.6 mg/dL (0.6-1.0) Estimated GFR (Cockcroft-Gault) 36.5 39.1 Glucose Level 90 mg/dL (70-99) 123 mg/dL (70-99) Calcium Level 8.3 mg/dL (8.5-10.1) 8.8 mg/dL (8.5-10.1) KG-Tae-M-Type Natriuretic Peptide 469 pg/mL (0-124) Prealbumin 24.2 mg/dL (16.0-42.0) Free Thyroxine 0.91 ng/dL (0.76-1.46) Glucose (Fingerstick) 63 mg/dL (70-99) 141 mg/dL (70-99) Laboratory Tests Test 03/02/18 17:50 03/02/18 21:28 03/03/18 06:30 03/03/18 07:37 White Blood Count 11.7 x10^3/uL (4.0-11.0) 9.9 x10^3/uL (4.0-11.0) Red Blood Count 4.19 x10^6/uL (3.50-5.40) 4.16 x10^6/uL (3.50-5.40) Hemoglobin 11.6 g/dL (12.0-15.5) 11.8 g/dL (12.0-15.5) Hematocrit 35.0 % (36.0-47.0) 35.0 % (36.0-47.0) Mean Corpuscular Volume 84 fL (79-100) 84 fL (79-100) Mean Corpuscular Hemoglobin 28 pg (25-35) 29 pg (25-35) Mean Corpuscular Hemoglobin Concent 33 g/dL (31-37) 34 g/dL (31-37) Red Cell Distribution Width 15.5 % (11.5-14.5) 15.8 % (11.5-14.5) Platelet Count 355 x10^3/uL (140-400) 349 x10^3/uL (140-400) Neutrophils (%) (Auto) 56 % (31-73) 66 % (31-73) Lymphocytes (%) (Auto) 35 % (24-48) 25 % (24-48) Monocytes (%) (Auto) 6 % (0-9) 6 % (0-9) Eosinophils (%) (Auto) 3 % (0-3) 2 % (0-3) Basophils (%) (Auto) 1 % (0-3) 1 % (0-3) Neutrophils # (Auto) 6.5 x10^3uL (1.8-7.7) 6.5 x10^3uL (1.8-7.7) Lymphocytes # (Auto) 4.1 x10^3/uL (1.0-4.8) 2.5 x10^3/uL (1.0-4.8) Monocytes # (Auto) 0.7 x10^3/uL (0.0-1.1) 0.6 x10^3/uL (0.0-1.1) Eosinophils # (Auto) 0.3 x10^3/uL (0.0-0.7) 0.2 x10^3/uL (0.0-0.7) Basophils # (Auto) 0.1 x10^3/uL (0.0-0.2) 0.1 x10^3/uL (0.0-0.2) Sodium Level 145 mmol/L (136-145) 144 mmol/L (136-145) Potassium Level 3.3 mmol/L (3.5-5.1) 4.4 mmol/L (3.5-5.1) Chloride Level 106 mmol/L (98-107) 108 mmol/L (98-107) Carbon Dioxide Level 27 mmol/L (21-32) 28 mmol/L (21-32) Anion Gap 12 (6-14) 8 (6-14) Blood Urea Nitrogen 25 mg/dL (7-20) 20 mg/dL (7-20) Creatinine 1.7 mg/dL (0.6-1.0) 1.6 mg/dL (0.6-1.0) Estimated GFR (Cockcroft-Gault) 36.5 39.1 Glucose Level 90 mg/dL (70-99) 123 mg/dL (70-99) Calcium Level 8.3 mg/dL (8.5-10.1) 8.8 mg/dL (8.5-10.1) JV-Sgk-E-Type Natriuretic Peptide 469 pg/mL (0-124) Prealbumin 24.2 mg/dL (16.0-42.0) Free Thyroxine 0.91 ng/dL (0.76-1.46) Glucose (Fingerstick) 63 mg/dL (70-99) 141 mg/dL (70-99) Assessment/Plan Assessment/Plan IMP R FOOT WOUND DM II HTN POSS MILD DARRICK PROB CKD STAGE 3 HYPOKALEMIA ACUTE ON CHRONIC D CHF SUSPECT DEMENTIA PLAN WOUND CARE ANTIBIOTICS IV LASIX, HCTZ AND ARB CHECK UA WILL FOLLOW LABS IN DEE MARIE MD Mar 03, 2018 11:22
--- NOTE | 2018-03-03 13:10 | PDOC ---
Provider Note Provider Note ID consult dictated DIONNE GAMINO MD Mar 03, 2018 13:10
--- NOTE | 2018-03-03 13:24 | RAD ---
Right foot, 3 views, 03/03/2018: HISTORY: Possible heel infection There is moderate patchy bony demineralization. There are mild scattered degenerative changes. No fracture or dislocation is identified. No destructive bone lesion is seen. Arterial calcifications are evident. IMPRESSION: 1. Demineralization. 2. No acute bony abnormality is detected. Electronically signed by: Bunny Nick MD (03/03/2018 1:21 PM) [facility]
--- NOTE | 2018-03-03 13:28 | CONS ---
DATE OF CONSULTATION: 03/03/2018 REFERRING PHYSICIAN: Dr. Arevalo. REASON FOR CONSULTATION: Right foot wound. HISTORY OF PRESENT ILLNESS: A 67-year-old female, alf resident, who was sent to the ER for right foot wound. The patient is not able to give much details, states she is not sure when she developed the blister over the right foot. Denies wearing any new shoes or trauma. She does have diabetic neuropathy. She denies any pain in the area. Denies any fevers, chills, nausea, vomiting, diarrhea, abdominal pain. She does have lower extremity edema, which is the main concern. She denies any shortness of breath. Uses a wheelchair, but able to walk with some assistance. She is not a good historian, is not able to give details. PAST MEDICAL HISTORY: Hypertension, hyperlipidemia, diabetes, chronic renal insufficiency, status post cholecystectomy. SOCIAL HISTORY: Positive for smoking. ETOH none. No drugs. CURRENT MEDICATION: Zosyn. ALLERGIES: SULFA, METRONIDAZOLE. REVIEW OF SYSTEMS: Unable to obtain from the patient. PHYSICAL EXAMINATION: VITAL SIGNS: Temperature 98.3, pulse 71, respiratory rate 16, blood pressure 107/62, oxygen saturation 94% on 2 liters. GENERAL: Alert and oriented x 3 female sitting in chair, in no acute distress, cooperative. HEENT: Normocephalic, atraumatic, anicteric. No thrush. NECK: Supple. LUNGS: Decreased breath sounds at the bases. HEART: S1, S2. ABDOMEN: Soft, bowel sounds present, nontender. EXTREMITIES: Bilateral pedal edema, no cyanosis, no clubbing. Right heel shows a hemorrhagic blister. No surrounding redness or drainage noted. DERMATOLOGIC: No generalized rash. NEUROLOGIC: Alert and oriented x 2, intermittently confused. PSYCHIATRIC: Cooperative, appropriate mood, confused. MUSCULOSKELETAL: No gross deformity. LABORATORY DATA: WBC 11.7, now 9.9, hemoglobin 11.8, hematocrit 35.0, platelets 349. Sodium 144, potassium 4.4, chloride 108, bicarbonate 28, BUN 20, creatinine 1.6, glucose 123, calcium 8.8. IMAGING: Lower extremity ultrasound negative for DVT. Lower extremity Doppler ultrasound shows no focal vessel occlusion or significant focal stenosis demonstrated though diffuse plaque and abnormal monophasic waveforms beyond the mid to distal superficial femoral artery. IMPRESSION: 1. Right heel hemorrhagic blister, onset unclear. 2. Mild cognitive disorder. 3. Hypertension. 4. Acute kidney injury on chronic kidney disease. 5. Diabetes mellitus. 6. Mild congestive heart failure. 7. Hypokalemia. RECOMMENDATIONS: 1. Continue empiric Zosyn. We will add linezolid. 2. Follow up wound care. 3. We will obtain x-ray of the right foot. 4. May need vascular evaluation. 5. Adjust antibiotics according to renal functions. Thank you, Dr. Arevalo, for consulting Infectious Disease to participate in this patient's care. If you have any questions, do not hesitate to contact me. DIONNE GAMINO MD DR: TAYLOR/javier JOB#: [id number] / [id number] BINU
[2018-03-03 15:00] VITALS: BP 99/51
--- NOTE | 2018-03-03 16:33 | CARD ---
MR#: [id number] Date of Study: 03/03/2018 Ordering Physician: ANNMARIE DACOSTA, Referring Physician: ANNMARIE DACOSTA, Tech: Desiree Potter APPROVED REPORT EXAM: Two-dimensional and M-mode echocardiogram with Doppler and color Doppler. Other Information Quality : AverageHR: 73bpm Rhythm : NSR INDICATION Congestive Heart Failure 2D DIMENSIONS RVDd2.0 (2.9-3.5cm)Left Atrium(2D)3.0 (1.6-4.0cm) IVSd1.0 (0.7-1.1cm)Aortic Root(2D)3.1 (2.0-3.7cm) LVDd5.6 (3.9-5.9cm)LVOT Diameter2.2 (1.8-2.4cm) PWd1.2 (0.7-1.1cm)LVDs4.0 (2.5-4.0cm) FS (%) 28.6 %SV84.9 ml LVEF(%)54.5 (>50%) Aortic Valve AoV Peak Colby.159.7cm/sAoV VTI35.7cm AO Peak GR.10.2mmHgLVOT Peak Colby.107.9cm/s AO Mean GR.5mmHgAVA (VMAX)2.45cm2 Mitral Valve MV E Mccwmopq81.9cm/sMV DECEL OUML208sb MV A Aznmiyam44.4cm/sE/A Ratio1.1 Pulmonary Valve PV Peak Znktmdzh64.9cm/s Tricuspid Valve TR P. Mlkttqae059kz/sRAP NARRSSUE1qmWr TR Peak Gr.83ehVuVBAK69cpUq Pulmonary Vein S1 Vijkmdcz79.5cm/sD2 Cbljcccw68.8cm/s PVa varsrcde969sofv LEFT VENTRICLE The left ventricle is normal size. There is normal left ventricular wall thickness. The left ventricu lar systolic function is normal and the ejection fraction is within normal range. The Ejection Fracti on is 50-55%. There is normal LV segmental wall motion. Transmitral Doppler flow pattern is Grade II- pseudonormal filling dynamics. RIGHT VENTRICLE The right ventricle is normal size. There is normal right ventricular wall thickness. The right ventr icular systolic function is normal. ATRIA The left atrium size is normal. The right atrium size is normal. The interatrial septum is intact wit h no evidence for an atrial septal defect or patent foramen ovale as noted on 2-D or Doppler imaging. AORTIC VALVE The aortic valve is not well visualized. Doppler and Color Flow revealed no significant aortic regurg itation. There is no significant aortic valvular stenosis. MITRAL VALVE The mitral valve is thickened but opens well. Doppler and Color Flow revealed trace mitral regurgitat ion. TRICUSPID VALVE The tricuspid valve is not well visualized. Doppler and Color Flow revealed trace tricuspid regurgita tion. PULMONIC VALVE The pulmonary valve is normal in structure and function. Doppler and Color Flow revealed no pulmonic valvular regurgitation. GREAT VESSELS The aortic root is normal in size. Normal pulmonary venous flow (Doppler). The IVC is normal in size and collapses >50% with inspiration. PERICARDIAL EFFUSION There is no evidence of significant pericardial effusion. Critical Notification Critical Value: No <Conclusion> The left ventricle is normal size. The left ventricular systolic function is normal and the ejection fraction is within normal range. The Ejection Fraction is 50-55%. There is no significant aortic valvular stenosis. Doppler and Color Flow revealed no significant aortic regurgitation. Doppler and Color Flow revealed trace mitral regurgitation. Doppler and Color Flow revealed trace tricuspid regurgitation. Signed by : Rakesh Kay MD Electronically Approved : 03/03/2018 16:32:34
[2018-03-03] MEDS ORDERED: HYDROCORTISONE ACETATE 25 MG SUPP.RECT PR PRN (17:30)
[2018-03-03] MEDS ORDERED: DEXTROSE 50% 25 GM / 50ML DISP.SYRIN. IV PRN (17:30)
[2018-03-03] MEDS: LINEZOLID 600 MG TABLET PO SCH ×2 (18:07→20:52)
[2018-03-03] MEDS: oxyCODONE IR 5 MG TABLET PO PRN (18:09)
[2018-03-03 19:40] VITALS: BP 150/76
[2018-03-03] MEDS: LACTOBACILLUS RHAMNOSUS GG 1 CAPSULE. PO SCH (20:41)
[2018-03-03] MEDS: ATORVASTATIN CALCIUM 40 MG TABLET. PO SCH (20:42)
[2018-03-03] MEDS: FAMOTIDINE 20 MG TABLET. PO SCH (20:42)
[2018-03-03] MEDS: ENOXAPARIN 40 MG/0.4 ML SYRINGE. SQ SCH (20:42)
[2018-03-03 23:50] VITALS: BP 150/67
[2018-03-04 03:40] VITALS: BP 150/74
[2018-03-04 04:32] LABS: BASO # 0.1 x10^3/uL (0.0-0.2); BASO % 1 % (0-3); EOS # 0.3 x10^3/uL (0.0-0.7); EOS % 3 % (0-3); HEMATOCRIT 33.5 % (36.0-47.0); HEMOGLOBIN 11.4 g/dL (12.0-15.5); LYMPH # 3.7 x10^3/uL (1.0-4.8); LYMPH % 35 % (24-48); MEAN CORPUSCULAR HEMOGLOBIN 29 pg (25-35); MEAN CORPUSCULAR HGB CONC 34 g/dL (31-37); MEAN CORPUSCULAR VOLUME 84 fL (79-100); MONO # 0.7 x10^3/uL (0.0-1.1); MONO % 7 % (0-9); NEUT # 5.7 x10^3uL (1.8-7.7); NEUT % 54 % (31-73); PLATELET COUNT 352 x10^3/uL (140-400); RED BLOOD COUNT 3.98 x10^6/uL (3.50-5.40); RED CELL DISTRIBUTION WIDTH 15.9 % (11.5-14.5); WHITE BLOOD COUNT 10.5 x10^3/uL (4.0-11.0)
[2018-03-04 05:04] LABS: CALCIUM 8.5 mg/dL (8.5-10.1); CREATININE 1.7 mg/dL (0.6-1.0); GFR 36.5; MAGNESIUM 1.9 mg/dL (1.8-2.4); POTASSIUM 4.1 mmol/L (3.5-5.1)
[2018-03-04] MEDS: LEVOTHYROXINE 137 MCG TABLET PO SCH (05:38)
[2018-03-04] MEDS: PIPERACILLIN/TAZOBACTAM 3.375 GM in IV NORMAL SALINE 50ML 50 ML IV SCH ×3 (05:38→20:57)
[2018-03-04 07:00] VITALS: BP 143/65
[2018-03-04] MEDS ORDERED: INSULIN LISPRO 300 UNITS/3 ML INSULN.PEN. SQ SCH (08:00)
[2018-03-04] MEDS: CETIRIZINE HCL 10 MG TABLET. PO SCH (08:09)
[2018-03-04] MEDS: MULTIVITAMIN with MINERAL TABLET. PO SCH (08:09)
[2018-03-04] MEDS: LINEZOLID 600 MG TABLET PO SCH ×2 (08:09→20:52)
[2018-03-04] MEDS: LACTOBACILLUS RHAMNOSUS GG 1 CAPSULE. PO SCH ×2 (08:10→20:51)
[2018-03-04] MEDS: GABAPENTIN 400 MG CAPSULE. PO SCH ×2 (08:10→20:52)
[2018-03-04] MEDS: amLODIPine BESYLATE 5 MG TABLET PO SCH (08:10)
[2018-03-04] MEDS: FUROSEMIDE 40 MG/4 ML VIAL. IVP SCH ×2 (08:11→14:33)
[2018-03-04] MEDS: METOPROLOL TART IMMED RELEASE 50 MG TABLET. PO SCH ×2 (08:11→20:54)
[2018-03-04] MEDS: hydroCHLOROthiazide 12.5 MG CAPSULE PO SCH (08:11)
[2018-03-04] MEDS: oxyCODONE IR 5 MG TABLET PO PRN (08:14)
[2018-03-04] MEDS: LOSARTAN POTASSIUM 50 MG TABLET. PO SCH (08:14)
[2018-03-04] MEDS: INSULIN LISPRO 300 UNITS/3 ML INSULN.PEN. SQ SCH ×3 (08:18→17:53)
--- NOTE | 2018-03-04 10:08 | PDOC ---
Infectious Disease Note Subjective: Subjective pt says feels ok no f/c/n/v/d rt foot lesion remains the same ROS: ROS Negative except for above. Vital Signs: Vital Signs Vital Signs Date Time Temp Pulse Resp B/P (MAP) Pulse Ox O2 Delivery O2 Flow Rate FiO2 03/04/18 08:14 66 143/65 03/04/18 08:14 Room Air 03/04/18 07:00 98.4 18 90 98.4 03/03/18 20:00 2.0 Physical Exam: PHYSICAL EXAM GENERAL: Alert and oriented x 3 female sitting in chair, in no acute distress, cooperative. HEENT: Normocephalic, atraumatic, anicteric. No thrush. NECK: Supple. LUNGS: Decreased breath sounds at the bases. HEART: S1, S2. ABDOMEN: Soft, bowel sounds present, nontender. EXTREMITIES: Bilateral pedal edema, no cyanosis, no clubbing. Right heel shows a hemorrhagic blister. No surrounding redness or drainage noted. DERMATOLOGIC: No generalized rash. NEUROLOGIC: Alert and oriented x 2, intermittently confused. PSYCHIATRIC: Cooperative, appropriate mood, confused. MUSCULOSKELETAL: No gross deformity. Medications: Inpatient Meds: Current Medications Medications (Trade) Dose Ordered Sig/Sancho Start Time Stop Time Status Last Admin Dose Admin Acetaminophen (Tylenol) 650 mg PRN Q4HRS PRN 03/02/18 23:30 Al Hydroxide/Mg Hydroxide (Mylanta Plus Xs) 30 ml PRN Q6HRS PRN 03/02/18 23:30 Amlodipine Besylate (Norvasc) 5 mg DAILY 03/03/18 09:00 03/04/18 08:10 5 MG Atorvastatin Calcium (Lipitor) 40 mg QHS 03/03/18 21:00 03/03/18 20:42 40 MG Calcium Carbonate/ Glycine (Tums) 400 mg TID PRN PRN 03/02/18 23:30 Cetirizine HCl (ZyrTEC) 10 mg DAILY 03/03/18 09:00 03/04/18 08:09 10 MG Dextrose (Dextrose 50%-Water Syringe) 12.5 gm PRN Q15MIN PRN 03/03/18 17:30 Enoxaparin Sodium (Lovenox 40mg Syringe) 40 mg QHS 03/02/18 23:45 03/03/18 20:42 40 MG Famotidine (Pepcid) 20 mg HS 03/03/18 21:00 03/03/18 20:42 20 MG Furosemide (Lasix) 40 mg BID92 03/03/18 09:00 03/04/18 08:11 40 MG Gabapentin (Neurontin) 400 mg BID 03/03/18 09:00 03/04/18 08:10 400 MG Hydrochlorothiazide (Microzide) 12.5 mg DAILY 03/03/18 09:00 03/04/18 08:11 12.5 MG Hydrocortisone Acetate (Anucort-Hc) 25 mg PRN DAILY PRN 03/03/18 17:30 Influenza Virus Vaccine (Afluria Trivalent [id number] Syringe) 0.5 ml ONCE ONCE 03/03/18 09:00 03/03/18 09:01 DC Info (Do NOT chart on this placeholder) 1 each 1X ONCE 03/02/18 21:00 03/02/18 21:01 UNV Insulin Glargine (Lantus) 60 units BID 03/03/18 09:00 03/03/18 17:21 DC Insulin Human Lispro (HumaLOG) 0-9 UNITS TIDWMEALS 03/03/18 18:15 03/04/18 08:18 4 UNITS Lactobacillus Rhamnosus (Culturelle) 1 cap BID 03/03/18 21:00 03/04/18 08:10 1 CAP Levothyroxine Sodium (Synthroid) 137 mcg DAILY07 03/03/18 07:00 03/04/18 05:38 137 MCG Linezolid (Zyvox) 600 mg BID 03/03/18 14:00 03/04/18 08:09 600 MG Losartan Potassium (Cozaar) 50 mg DAILY 03/03/18 09:00 03/04/18 08:14 50 MG Metoprolol Tartrate (Lopressor) 50 mg BID 03/03/18 09:00 03/04/18 08:11 50 MG Multivitamins (Thera M Plus) 1 tab DAILY 03/03/18 09:00 03/04/18 08:09 1 TAB Ondansetron HCl (Zofran) 4 mg PRN Q8HRS PRN 03/02/18 18:00 03/03/18 17:59 DC Oxycodone HCl (Roxicodone) 5 mg PRN Q6HRS PRN 03/02/18 18:00 03/04/18 08:14 5 MG Piperacillin Sod/ Tazobactam Sod 3.375 gm/Sodium Chloride 50 ml @ 100 mls/hr Q8HRS 03/03/18 14:00 03/04/18 05:38 100 MLS/HR Potassium Chloride (Klor-Con) 40 meq 1X ONCE 03/02/18 23:45 03/02/18 23:46 DC 03/03/18 01:09 40 MEQ Labs: Lab Laboratory Tests Test 03/03/18 12:03 03/03/18 17:18 03/03/18 20:53 03/04/18 04:00 Glucose (Fingerstick) 150 mg/dL (70-99) 178 mg/dL (70-99) 220 mg/dL (70-99) White Blood Count 10.5 x10^3/uL (4.0-11.0) Red Blood Count 3.98 x10^6/uL (3.50-5.40) Hemoglobin 11.4 g/dL (12.0-15.5) Hematocrit 33.5 % (36.0-47.0) Mean Corpuscular Volume 84 fL (79-100) Mean Corpuscular Hemoglobin 29 pg (25-35) Mean Corpuscular Hemoglobin Concent 34 g/dL (31-37) Red Cell Distribution Width 15.9 % (11.5-14.5) Platelet Count 352 x10^3/uL (140-400) Neutrophils (%) (Auto) 54 % (31-73) Lymphocytes (%) (Auto) 35 % (24-48) Monocytes (%) (Auto) 7 % (0-9) Eosinophils (%) (Auto) 3 % (0-3) Basophils (%) (Auto) 1 % (0-3) Neutrophils # (Auto) 5.7 x10^3uL (1.8-7.7) Lymphocytes # (Auto) 3.7 x10^3/uL (1.0-4.8) Monocytes # (Auto) 0.7 x10^3/uL (0.0-1.1) Eosinophils # (Auto) 0.3 x10^3/uL (0.0-0.7) Basophils # (Auto) 0.1 x10^3/uL (0.0-0.2) Sodium Level 144 mmol/L (136-145) Potassium Level 4.1 mmol/L (3.5-5.1) Chloride Level 107 mmol/L (98-107) Carbon Dioxide Level 28 mmol/L (21-32) Anion Gap 9 (6-14) Blood Urea Nitrogen 23 mg/dL (7-20) Creatinine 1.7 mg/dL (0.6-1.0) Estimated GFR (Cockcroft-Gault) 36.5 Glucose Level 159 mg/dL (70-99) Calcium Level 8.5 mg/dL (8.5-10.1) Magnesium Level 1.9 mg/dL (1.8-2.4) Test 03/04/18 07:47 Glucose (Fingerstick) 163 mg/dL (70-99) Objective: Assessment: 1. Right heel hemorrhagic blister, onset unclear. 2. Mild cognitive disorder. 3. Hypertension. 4. Acute kidney injury on chronic kidney disease. 5. Diabetes mellitus. 6. Mild congestive heart failure. 7. Hypokalemia. Plan: Plan of Care 1. Continue empiric Zosyn/ linezolid. 2. Follow up wound care. 3. f/u cults and labs in am 4. f/u MRI rt foot DIONNE GAMINO MD Mar 04, 2018 10:08
--- NOTE | 2018-03-04 10:37 | PDOC ---
PROGRESS NOTES History of Present Illness History of Present Illness Assessment/Plan Assessment/Plan IMPRESSION 1 Diabetic foot wound with cellulitis oft tissue swelling about the ankle and midfoot and ulceration at the posterior aspect of the calcaneus medially, there is no MRI evidence of acute osteomyelitis. 2. htn 3. hyperlipidemia 4. morbid obesity 5. acute chf DD 6. No focal arterial occlusion or significant focal stenosis is demonstrated although diffuse plaque and abnormal monophasic waveforms beyond the mid to distal superficial femoral arteries. plan 1. wound culture 2. emperic iv antibiotics 3. ID consult 4, wound care nurse following 5. glucose control 6. sq lovenox dvt prophylaxis 7. ECHO 8. IV LASIX 40MG BID 9. OFF LOADING OF FOOT 10. ARTERIAL DOPPLER BOTH LEGS noted Vitals Vitals Vital Signs Date Time Temp Pulse Resp B/P (MAP) Pulse Ox O2 Delivery O2 Flow Rate FiO2 03/04/18 08:14 66 143/65 03/04/18 08:14 Room Air 03/04/18 07:00 98.4 18 90 98.4 03/03/18 20:00 2.0 Physical Exam Physical Exam GENERAL: Alert and oriented x 3 female sitting in chair, in no acute distress, cooperative. HEENT: Normocephalic, atraumatic, anicteric. No thrush. NECK: Supple. LUNGS: Decreased breath sounds at the bases. HEART: S1, S2. ABDOMEN: Soft, bowel sounds present, nontender. EXTREMITIES: Bilateral pedal edema, no cyanosis, no clubbing. Right heel shows a hemorrhagic blister. No surrounding redness or drainage noted. DERMATOLOGIC: No generalized rash. NEUROLOGIC: Alert and oriented x 2, intermittently confused. PSYCHIATRIC: Cooperative, appropriate mood, confused. MUSCULOSKELETAL: No gross deformity. General: Alert, Oriented X3, Cooperative, No acute distress, mild distress, moderate distress Heart: Regular rate, Normal S1, Normal S2 Lungs: Clear Abdomen: Normal bowel sounds Extremities: No clubbing, No cyanosis, Normal pulses Skin: No rashes, Other (foot wound dressed) Labs LABS CLINICAL INDICATION: NONHEALING ULCER ON RIGHT POSTEROMEDIAL ASPECT OF FOOT COMPARISON: Radiograph 01/30/2018 TECHNIQUE: Multiplanar multisequence MR imaging of the right ankle/hindfoot was performed without without IV contrast. FINDINGS: Soft tissue ulceration is seen at the dorsal/medial soft tissues overlying the calcaneus. There is moderate associated soft tissue edema. Although the edema extends to the level of the bony surface, the subjacent cortex is preserved. T1 marrow signal within the calcaneus is also preserved. No MRI evidence for acute osteomyelitis. Diffuse soft tissue edema is seen about the right ankle. No significant ankle, subtalar joint or calcaneocuboid joint effusion. The medial and lateral flexors as well as the extensor tendons are grossly intact. No tenosynovitis. The Achilles tendon is normal in signal and morphology without significant retrocalcaneal bursal fluid or Kagers fat pad edema. Diffuse fatty atrophy of intrinsic muscles of the foot with associated edema, possibly denervation myositis.. Specifically there is diffuse fatty atrophy of the abductor digiti minimi without associated soft tissue mass lesion. Plantar fascia is intact, normal in signal and morphology. Of note, the ATFL is not well-visualized without significant associated edema, possibly sequela of labral injury. Otherwise the lateral, syndesmotic and medial ankle ligaments are intact. Tarsal tunnel within normal limits, without mass lesion. IMPRESSION: 1. Although there is diffuse soft tissue swelling about the ankle and midfoot and ulceration at the posterior aspect of the calcaneus medially, there is no MRI evidence of acute osteomyelitis. 2. Diffuse atrophy of intrinsic muscles of the foot with associated increased T2 signal possibly denervation myositis. Laboratory Tests Test 03/03/18 12:03 03/03/18 17:18 03/03/18 20:53 03/04/18 04:00 Glucose (Fingerstick) 150 mg/dL (70-99) 178 mg/dL (70-99) 220 mg/dL (70-99) White Blood Count 10.5 x10^3/uL (4.0-11.0) Red Blood Count 3.98 x10^6/uL (3.50-5.40) Hemoglobin 11.4 g/dL (12.0-15.5) Hematocrit 33.5 % (36.0-47.0) Mean Corpuscular Volume 84 fL (79-100) Mean Corpuscular Hemoglobin 29 pg (25-35) Mean Corpuscular Hemoglobin Concent 34 g/dL (31-37) Red Cell Distribution Width 15.9 % (11.5-14.5) Platelet Count 352 x10^3/uL (140-400) Neutrophils (%) (Auto) 54 % (31-73) Lymphocytes (%) (Auto) 35 % (24-48) Monocytes (%) (Auto) 7 % (0-9) Eosinophils (%) (Auto) 3 % (0-3) Basophils (%) (Auto) 1 % (0-3) Neutrophils # (Auto) 5.7 x10^3uL (1.8-7.7) Lymphocytes # (Auto) 3.7 x10^3/uL (1.0-4.8) Monocytes # (Auto) 0.7 x10^3/uL (0.0-1.1) Eosinophils # (Auto) 0.3 x10^3/uL (0.0-0.7) Basophils # (Auto) 0.1 x10^3/uL (0.0-0.2) Sodium Level 144 mmol/L (136-145) Potassium Level 4.1 mmol/L (3.5-5.1) Chloride Level 107 mmol/L (98-107) Carbon Dioxide Level 28 mmol/L (21-32) Anion Gap 9 (6-14) Blood Urea Nitrogen 23 mg/dL (7-20) Creatinine 1.7 mg/dL (0.6-1.0) Estimated GFR (Cockcroft-Gault) 36.5 Glucose Level 159 mg/dL (70-99) Calcium Level 8.5 mg/dL (8.5-10.1) Magnesium Level 1.9 mg/dL (1.8-2.4) Test 03/04/18 07:47 Glucose (Fingerstick) 163 mg/dL (70-99) Assessment and Plan Assessmemt and Plan Problems Medical Problems: (1) Diabetic foot ulcers Status: Acute Comment Review of Relevant I have reviewed the following items lia (where applicable) has been applied. Labs Laboratory Tests Test 03/02/18 17:50 03/02/18 21:28 03/03/18 02:00 03/03/18 06:30 White Blood Count 11.7 x10^3/uL (4.0-11.0) 9.9 x10^3/uL (4.0-11.0) Red Blood Count 4.19 x10^6/uL (3.50-5.40) 4.16 x10^6/uL (3.50-5.40) Hemoglobin 11.6 g/dL (12.0-15.5) 11.8 g/dL (12.0-15.5) Hematocrit 35.0 % (36.0-47.0) 35.0 % (36.0-47.0) Mean Corpuscular Volume 84 fL (79-100) 84 fL (79-100) Mean Corpuscular Hemoglobin 28 pg (25-35) 29 pg (25-35) Mean Corpuscular Hemoglobin Concent 33 g/dL (31-37) 34 g/dL (31-37) Red Cell Distribution Width 15.5 % (11.5-14.5) 15.8 % (11.5-14.5) Platelet Count 355 x10^3/uL (140-400) 349 x10^3/uL (140-400) Neutrophils (%) (Auto) 56 % (31-73) 66 % (31-73) Lymphocytes (%) (Auto) 35 % (24-48) 25 % (24-48) Monocytes (%) (Auto) 6 % (0-9) 6 % (0-9) Eosinophils (%) (Auto) 3 % (0-3) 2 % (0-3) Basophils (%) (Auto) 1 % (0-3) 1 % (0-3) Neutrophils # (Auto) 6.5 x10^3uL (1.8-7.7) 6.5 x10^3uL (1.8-7.7) Lymphocytes # (Auto) 4.1 x10^3/uL (1.0-4.8) 2.5 x10^3/uL (1.0-4.8) Monocytes # (Auto) 0.7 x10^3/uL (0.0-1.1) 0.6 x10^3/uL (0.0-1.1) Eosinophils # (Auto) 0.3 x10^3/uL (0.0-0.7) 0.2 x10^3/uL (0.0-0.7) Basophils # (Auto) 0.1 x10^3/uL (0.0-0.2) 0.1 x10^3/uL (0.0-0.2) Sodium Level 145 mmol/L (136-145) 144 mmol/L (136-145) Potassium Level 3.3 mmol/L (3.5-5.1) 4.4 mmol/L (3.5-5.1) Chloride Level 106 mmol/L (98-107) 108 mmol/L (98-107) Carbon Dioxide Level 27 mmol/L (21-32) 28 mmol/L (21-32) Anion Gap 12 (6-14) 8 (6-14) Blood Urea Nitrogen 25 mg/dL (7-20) 20 mg/dL (7-20) Creatinine 1.7 mg/dL (0.6-1.0) 1.6 mg/dL (0.6-1.0) Estimated GFR (Cockcroft-Gault) 36.5 39.1 Glucose Level 90 mg/dL (70-99) 123 mg/dL (70-99) Calcium Level 8.3 mg/dL (8.5-10.1) 8.8 mg/dL (8.5-10.1) JU-Iev-B-Type Natriuretic Peptide 469 pg/mL (0-124) Prealbumin 24.2 mg/dL (16.0-42.0) Free Thyroxine 0.91 ng/dL (0.76-1.46) Glucose (Fingerstick) 63 mg/dL (70-99) Nasal Screen MRSA (PCR) Negative (Negative) Test 03/03/18 07:37 03/03/18 12:03 03/03/18 17:18 03/03/18 20:53 Glucose (Fingerstick) 141 mg/dL (70-99) 150 mg/dL (70-99) 178 mg/dL (70-99) 220 mg/dL (70-99) Test 03/04/18 04:00 03/04/18 07:47 White Blood Count 10.5 x10^3/uL (4.0-11.0) Red Blood Count 3.98 x10^6/uL (3.50-5.40) Hemoglobin 11.4 g/dL (12.0-15.5) Hematocrit 33.5 % (36.0-47.0) Mean Corpuscular Volume 84 fL (79-100) Mean Corpuscular Hemoglobin 29 pg (25-35) Mean Corpuscular Hemoglobin Concent 34 g/dL (31-37) Red Cell Distribution Width 15.9 % (11.5-14.5) Platelet Count 352 x10^3/uL (140-400) Neutrophils (%) (Auto) 54 % (31-73) Lymphocytes (%) (Auto) 35 % (24-48) Monocytes (%) (Auto) 7 % (0-9) Eosinophils (%) (Auto) 3 % (0-3) Basophils (%) (Auto) 1 % (0-3) Neutrophils # (Auto) 5.7 x10^3uL (1.8-7.7) Lymphocytes # (Auto) 3.7 x10^3/uL (1.0-4.8) Monocytes # (Auto) 0.7 x10^3/uL (0.0-1.1) Eosinophils # (Auto) 0.3 x10^3/uL (0.0-0.7) Basophils # (Auto) 0.1 x10^3/uL (0.0-0.2) Sodium Level 144 mmol/L (136-145) Potassium Level 4.1 mmol/L (3.5-5.1) Chloride Level 107 mmol/L (98-107) Carbon Dioxide Level 28 mmol/L (21-32) Anion Gap 9 (6-14) Blood Urea Nitrogen 23 mg/dL (7-20) Creatinine 1.7 mg/dL (0.6-1.0) Estimated GFR (Cockcroft-Gault) 36.5 Glucose Level 159 mg/dL (70-99) Calcium Level 8.5 mg/dL (8.5-10.1) Magnesium Level 1.9 mg/dL (1.8-2.4) Glucose (Fingerstick) 163 mg/dL (70-99) Laboratory Tests Test 03/03/18 12:03 03/03/18 17:18 03/03/18 20:53 03/04/18 04:00 Glucose (Fingerstick) 150 mg/dL (70-99) 178 mg/dL (70-99) 220 mg/dL (70-99) White Blood Count 10.5 x10^3/uL (4.0-11.0) Red Blood Count 3.98 x10^6/uL (3.50-5.40) Hemoglobin 11.4 g/dL (12.0-15.5) Hematocrit 33.5 % (36.0-47.0) Mean Corpuscular Volume 84 fL (79-100) Mean Corpuscular Hemoglobin 29 pg (25-35) Mean Corpuscular Hemoglobin Concent 34 g/dL (31-37) Red Cell Distribution Width 15.9 % (11.5-14.5) Platelet Count 352 x10^3/uL (140-400) Neutrophils (%) (Auto) 54 % (31-73) Lymphocytes (%) (Auto) 35 % (24-48) Monocytes (%) (Auto) 7 % (0-9) Eosinophils (%) (Auto) 3 % (0-3) Basophils (%) (Auto) 1 % (0-3) Neutrophils # (Auto) 5.7 x10^3uL (1.8-7.7) Lymphocytes # (Auto) 3.7 x10^3/uL (1.0-4.8) Monocytes # (Auto) 0.7 x10^3/uL (0.0-1.1) Eosinophils # (Auto) 0.3 x10^3/uL (0.0-0.7) Basophils # (Auto) 0.1 x10^3/uL (0.0-0.2) Sodium Level 144 mmol/L (136-145) Potassium Level 4.1 mmol/L (3.5-5.1) Chloride Level 107 mmol/L (98-107) Carbon Dioxide Level 28 mmol/L (21-32) Anion Gap 9 (6-14) Blood Urea Nitrogen 23 mg/dL (7-20) Creatinine 1.7 mg/dL (0.6-1.0) Estimated GFR (Cockcroft-Gault) 36.5 Glucose Level 159 mg/dL (70-99) Calcium Level 8.5 mg/dL (8.5-10.1) Magnesium Level 1.9 mg/dL (1.8-2.4) Test 03/04/18 07:47 Glucose (Fingerstick) 163 mg/dL (70-99) Medications Current Medications Ondansetron HCl (Zofran) 4 mg PRN Q8HRS PRN IV NAUSEA/VOMITING; Start 03/02/18 at 18:00; Stop 03/03/18 at 17:59; Status DC Acetaminophen (Tylenol) 650 mg PRN Q4HRS PRN PO FEVER Last administered on 03/02at 21:41; Start 03/02/18 at 18:00; Stop 03/02/18 at 23:38; Status DC Oxycodone HCl (Roxicodone) 5 mg PRN Q6HRS PRN PO pain unrelieved by tylenol Last administered on 03/04/18at 08:14; Start 03/02/18 at 18:00 Info (Do NOT chart on this placeholder) 1 each 1X ONCE MC ; Start 03/02/18 at 21:00; Stop 03/02/18 at 21:01; Status UNV Influenza Virus Vaccine (Afluria Trivalent [id number] Syringe) 0.5 ml ONCE ONCE VAX IM ; Start 03/03/18 at 09:00; Stop 03/03/18 at 09:01; Status DC Acetaminophen (Tylenol) 650 mg PRN Q4HRS PRN PO MILD PAIN / TEMP; Start at 23:30 Amlodipine Besylate (Norvasc) 5 mg DAILY PO Last administered on 03/04/18at 08: 10; Start 03/03/18 at 09:00 Atorvastatin Calcium (Lipitor) 40 mg QHS PO Last administered on 03/03/18at 20: 42; Start 03/03/18 at 21:00 Calcium Carbonate/ Glycine (Tums) 400 mg TID PRN PRN PO INDIGESTION; Start at 23:30 Famotidine (Pepcid) 20 mg HS PO Last administered on 03/03/18at 20:42; Start at 21:00 Insulin Glargine (Lantus) 60 units BID SQ ; Start 03/03/18 at 09:00; Stop at 17:21; Status DC Levothyroxine Sodium (Synthroid) 137 mcg DAILY07 PO Last administered on at 05:38; Start 03/03/18 at 07:00 Al Hydroxide/Mg Hydroxide (Mylanta Plus Xs) 30 ml PRN Q6HRS PRN PO GAS / BLOATING; Start 03/02/18 at 23:30 Metoprolol Tartrate (Lopressor) 50 mg BID PO Last administered on 03/04/18at 08: 11; Start 03/03/18 at 09:00 Gabapentin (Neurontin) 400 mg BID PO Last administered on 03/04/18at 08:10; Start 03/03/18 at 09:00 Hydrocortisone Acetate (Anucort-Hc) 25 mg DAILY IN ; Start 03/03/18 at 09:00; Stop 03/03/18 at 17:25; Status DC Insulin Human Lispro (HumaLOG) 35 units TIDWMEALS SQ ; Start 03/03/18 at 08:00; Stop 03/03/18 at 17:21; Status DC Cetirizine HCl (ZyrTEC) 10 mg DAILY PO Last administered on 03/04/18at 08:09; Start 03/03/18 at 09:00 Losartan Potassium (Cozaar) 50 mg DAILY PO Last administered on 03/04/18at 08:14 ; Start 03/03/18 at 09:00 Multivitamins (Thera M Plus) 1 tab DAILY PO Last administered on 03/04/18at 08: 09; Start 03/03/18 at 09:00 Potassium Chloride (Klor-Con) 40 meq 1X ONCE PO Last administered on at 01:09; Start 03/02/18 at 23:45; Stop 03/02/18 at 23:46; Status DC Piperacillin Sod/ Tazobactam Sod 3.375 gm/Sodium Chloride 50 ml @ 100 mls/hr Q6HRS IV Last administered on 03/03/18at 13:08; Start 03/03/18 at 00:00; Stop at 13:10; Status DC Hydrochlorothiazide (Microzide) 12.5 mg DAILY PO Last administered on at 08:11; Start 03/03/18 at 09:00 Furosemide (Lasix) 40 mg BID92 IVP Last administered on 03/04/18at 08:11; Start 03/03/18 at 09:00 Enoxaparin Sodium (Lovenox 40mg Syringe) 40 mg QHS SQ Last administered on 03/03at 20:42; Start 03/02/18 at 23:45 Piperacillin Sod/ Tazobactam Sod 3.375 gm/Sodium Chloride 50 ml @ 100 mls/hr Q8HRS IV Last administered on 03/04/18at 05:38; Start 03/03/18 at 14:00 Linezolid (Zyvox) 600 mg BID PO Last administered on 03/04/18at 08:09; Start at 14:00 Lactobacillus Rhamnosus (Culturelle) 1 cap BID PO Last administered on at 08:10; Start 03/03/18 at 21:00 Insulin Human Lispro (HumaLOG) 0-9 UNITS TIDWMEALS SQ ; Start 03/04/18 at 08:00 ; Stop 03/04/18 at 08:00; Status DC Dextrose (Dextrose 50%-Water Syringe) 12.5 gm PRN Q15MIN PRN IV SEE COMMENTS; Start 03/03/18 at 17:30 Hydrocortisone Acetate (Anucort-Hc) 25 mg PRN DAILY PRN IN RECTAL PAIN; Start 03/03/18 at 17:30 Insulin Human Lispro (HumaLOG) 0-9 UNITS TIDWMEALS SQ Last administered on 03/04at 08:18; Start 03/03/18 at 18:15 Active Scripts Active Reported Anusol-Hc (Hydrocortisone Acetate) 25 Mg Supp.rect 1 Supp RC BID Maalox Advanced Suspension (Mag Hydrox/Aluminum Hyd/Simeth) 355 Ml Oral.susp 355 Ml PO Acetaminophen 325 Mg Tablet 650 Mg PO Gabapentin 400 Mg Capsule 400 Mg PO TID Norvasc (Amlodipine Besylate) 5 Mg Tablet 1 Tab PO DAILY Atorvastatin Calcium 40 Mg Tablet 1 Tab PO QHS Metoprolol Tartrate 50 Mg Tablet 1 Tab PO BID Famotidine 20 Mg Tablet 20 Mg PO HS Calcium Antacid (Calcium Carbonate) 215 Mg Tab.chew 500 Mg PO Losartan-Hctz 50-12.5 Mg Tab (Losartan/Hydrochlorothiazide) 1 Each Tablet 1 Tab PO DAILY Loratadine 10 Mg Tablet 1 Tab PO DAILY Synthroid (Levothyroxine Sodium) 137 Mcg Tablet 1 Tab PO DAILY Novolog (Insulin Aspart) 100 Unit/1 Ml Cartridge 35 Unit SQ TIDAC Lantus Solostar (Insulin Glargine,Hum.rec.anlog) 100 Unit/1 Ml Insuln.pen 60 Unit SQ QHS Anusol-Hc (Hydrocortisone Acetate) 25 Mg Supp.rect 1 Supp RC DAILY Maalox Maximum Strength Susp (Mag Hydrox/Al Hydrox/Simeth) 355 Ml Oral.susp 30 Ml PO PRN Q6HRS PRN Tylenol (Acetaminophen) 325 Mg Tablet 2 Tab PO PRN Q4HRS Gabapentin 400 Mg Capsule 400 Mg PO TID Norvasc (Amlodipine Besylate) 5 Mg Tablet 1 Tab PO DAILY Atorvastatin Calcium 40 Mg Tablet 1 Tab PO QHS Metoprolol Tartrate 50 Mg Tablet 1 Tab PO BID Famotidine 20 Mg Tablet 20 Mg PO HS Multivitamins (Multivitamin) 1 Each Tablet 1 Tab PO DAILY Calcium Antacid (Calcium Carbonate) 200 Mg Tab.chew 2 Tab PO TID PRN PRN Losartan-Hctz 50-12.5 Mg Tab (Losartan/Hydrochlorothiazide) 1 Each Tablet 1 Tab PO DAILY Loratadine 10 Mg Tablet 1 Tab PO DAILY Synthroid (Levothyroxine Sodium) 137 Mcg Tablet 1 Tab PO DAILY Novolog (Insulin Aspart) 100 Unit/1 Ml Vial 35 Unit SQ TIDAC Kianaaglhenrietta Monahanikpen U-100 (Insulin Glargine,Hum.rec.anlog) 100 Unit/1 Ml Insuln.pen 60 Unit SQ BID Vitals/I & O Vital Sign - Last 24 Hours 03/03/18 03/03/18 03/03/18 03/03/18 11:00 15:00 18:09 19:10 Temp 98.3 98.6 98.3 98.6 Pulse 71 73 Resp 16 16 20 18 B/P (MAP) 107/62 (77) 99/51 (67) Pulse Ox 94 100 100 O2 Delivery Nasal Cannula Room Air Room Air O2 Flow Rate 2.0 03/03/18 03/03/18 03/03/18 03/03/18 19:40 20:00 20:42 23:50 Temp 98.0 97.8 98.0 97.8 Pulse 75 73 68 Resp 19 17 B/P (MAP) 150/76 (100) 99/51 150/67 (94) Pulse Ox 92 91 O2 Delivery Room Air Room Air Room Air O2 Flow Rate 2.0 03/04/18 03/04/18 03/04/18 03/04/18 03:40 07:00 08:10 08:11 Temp 98.6 98.4 98.6 98.4 Pulse 70 66 66 66 Resp 17 18 B/P (MAP) 150/74 (99) 143/65 (91) 143/65 143/65 Pulse Ox 92 90 O2 Delivery Room Air Room Air 03/04/18 03/04/18 08:14 08:14 Pulse 66 B/P (MAP) 143/65 O2 Delivery Room Air Intake and Output 03/03/18 03/03/18 03/04/18 15:00 23:00 07:00 Intake Total 480 ml Balance 480 ml ANNMARIE DACOSTA MD Mar 04, 2018 10:37
--- NOTE | 2018-03-04 10:40 | PDOC ---
Renal-Progress Notes Subjective Notes Notes NO NEW COMPLAINTS History of Present Illness Hx of present illness STABLE Vitals Vitals Vital Signs Date Time Temp Pulse Resp B/P (MAP) Pulse Ox O2 Delivery O2 Flow Rate FiO2 03/04/18 08:14 66 143/65 03/04/18 08:14 Room Air 03/04/18 07:00 98.4 18 90 98.4 03/03/18 20:00 2.0 Weight Weight [ ] I.O. Intake and Output Intake and Output 03/04/18 07:00 Intake Total 480 ml Balance 480 ml Intake Oral 480 ml # Voids 7 # Bowel Movements 3 Labs Labs Laboratory Tests Test 03/03/18 12:03 03/03/18 17:18 03/03/18 20:53 03/04/18 04:00 Glucose (Fingerstick) 150 mg/dL (70-99) 178 mg/dL (70-99) 220 mg/dL (70-99) White Blood Count 10.5 x10^3/uL (4.0-11.0) Red Blood Count 3.98 x10^6/uL (3.50-5.40) Hemoglobin 11.4 g/dL (12.0-15.5) Hematocrit 33.5 % (36.0-47.0) Mean Corpuscular Volume 84 fL (79-100) Mean Corpuscular Hemoglobin 29 pg (25-35) Mean Corpuscular Hemoglobin Concent 34 g/dL (31-37) Red Cell Distribution Width 15.9 % (11.5-14.5) Platelet Count 352 x10^3/uL (140-400) Neutrophils (%) (Auto) 54 % (31-73) Lymphocytes (%) (Auto) 35 % (24-48) Monocytes (%) (Auto) 7 % (0-9) Eosinophils (%) (Auto) 3 % (0-3) Basophils (%) (Auto) 1 % (0-3) Neutrophils # (Auto) 5.7 x10^3uL (1.8-7.7) Lymphocytes # (Auto) 3.7 x10^3/uL (1.0-4.8) Monocytes # (Auto) 0.7 x10^3/uL (0.0-1.1) Eosinophils # (Auto) 0.3 x10^3/uL (0.0-0.7) Basophils # (Auto) 0.1 x10^3/uL (0.0-0.2) Sodium Level 144 mmol/L (136-145) Potassium Level 4.1 mmol/L (3.5-5.1) Chloride Level 107 mmol/L (98-107) Carbon Dioxide Level 28 mmol/L (21-32) Anion Gap 9 (6-14) Blood Urea Nitrogen 23 mg/dL (7-20) Creatinine 1.7 mg/dL (0.6-1.0) Estimated GFR (Cockcroft-Gault) 36.5 Glucose Level 159 mg/dL (70-99) Calcium Level 8.5 mg/dL (8.5-10.1) Magnesium Level 1.9 mg/dL (1.8-2.4) Test 03/04/18 07:47 Glucose (Fingerstick) 163 mg/dL (70-99) Review of Systems Constitutional: yes: alert, other (CONFUSED) Physical Exam General Appearance: no apparent distress Skin: warm Respiratory: bilateral CTA Heart: S1S2 Abdomen: soft, bowel sounds present Genitourinary: bladder flat Extremities: pulses present Neurology: alert, confused Musculoskeletal: Osteoarthritis Assessment Assessment IMP CKD STAGE 3-STABLE DM II HTN R FOOT WOUND PROB DEMENTIA PLAN WOUND CARE ANTIBIOTICS IVF'S WILL FOLLOW DEE FRANK MD Mar 04, 2018 10:40
[2018-03-04 11:00] VITALS: BP 119/62
[2018-03-04] MEDS: IV NORMAL SALINE 1000ML BAG 1,000 ML IV SCH ×2 (12:13→20:56)
--- NOTE | 2018-03-04 13:03 | RAD ---
EXAM: MRI RIGHT ANKLE/HINDFOOT DATE: 03/04/2018 10:24 AM CLINICAL INDICATION: NONHEALING ULCER ON RIGHT POSTEROMEDIAL ASPECT OF FOOT COMPARISON: Radiograph 01/30/2018 TECHNIQUE: Multiplanar multisequence MR imaging of the right ankle/hindfoot was performed without without IV contrast. FINDINGS: Soft tissue ulceration is seen at the dorsal/medial soft tissues overlying the calcaneus. There is moderate associated soft tissue edema. Although the edema extends to the level of the bony surface, the subjacent cortex is preserved. T1 marrow signal within the calcaneus is also preserved. No MRI evidence for acute osteomyelitis. Diffuse soft tissue edema is seen about the right ankle. No significant ankle, subtalar joint or calcaneocuboid joint effusion. The medial and lateral flexors as well as the extensor tendons are grossly intact. No tenosynovitis. The Achilles tendon is normal in signal and morphology without significant retrocalcaneal bursal fluid or Kagers fat pad edema. Diffuse fatty atrophy of intrinsic muscles of the foot with associated edema, possibly denervation myositis.. Specifically there is diffuse fatty atrophy of the abductor digiti minimi without associated soft tissue mass lesion. Plantar fascia is intact, normal in signal and morphology. Of note, the ATFL is not well-visualized without significant associated edema, possibly sequela of labral injury. Otherwise the lateral, syndesmotic and medial ankle ligaments are intact. Tarsal tunnel within normal limits, without mass lesion. IMPRESSION: 1. Although there is diffuse soft tissue swelling about the ankle and midfoot and ulceration at the posterior aspect of the calcaneus medially, there is no MRI evidence of acute osteomyelitis. 2. Diffuse atrophy of intrinsic muscles of the foot with associated increased T2 signal possibly denervation myositis. Electronically signed by: Roland Cowan MD (03/04/2018 12:59 PM) [id number]
--- NOTE | 2018-03-04 13:09 | PDOC2 ---
Chief Complaint: Chief Complaint: Pt with right ankle wound. Pt reports wound noted by nursing staff at [facility] prior to hospitalization. Pt with underlying DM and associated neuropathy. Pt denies pain of the wound to her right heel, denies trauma and denies hx of DFUs or difficulty with wound healing. Vital Signs: Vital Signs: Vital Signs Date Time Temp Pulse Resp B/P (MAP) Pulse Ox O2 Delivery O2 Flow Rate FiO2 03/03/18 07:20 98.5 77 16 162/77 (105) 90 Room Air 98.5 03/03/18 11:00 2.0 Vital Signs Date Time Temp Pulse Resp B/P (MAP) Pulse Ox O2 Delivery O2 Flow Rate FiO2 03/04/18 11:00 98.5 63 18 119/62 (81) 90 Room Air 98.5 03/03/18 20:00 2.0 Allergies: Allergies: Allergies Coded Allergies Type Severity Reaction Last Updated Verified Sulfa (Sulfonamide Antibiotics) Allergy Intermediate itching 03/02/18 Yes metronidazole Allergy Intermediate 03/02/18 Yes Medications: Home Meds Reported Medications Hydrocortisone Acetate (ANUSOL-HC) 25 Mg Supp.rect, 1 SUPP RC BID, #14 SUPP 03/03/18 Mag Hydrox/Aluminum Hyd/Simeth (Maalox Advanced Suspension) 355 Ml Oral.susp, 355 ML PO, MISC 03/03/18 Acetaminophen (ACETAMINOPHEN) 325 Mg Tablet, 650 MG PO, TAB 03/03/18 Gabapentin (GABAPENTIN) 400 Mg Capsule, 400 MG PO TID, CAP 03/03/18 Amlodipine Besylate (NORVASC) 5 Mg Tablet, 1 TAB PO DAILY, #30 TAB 5 Refills 03/03/18 Atorvastatin Calcium (ATORVASTATIN CALCIUM) 40 Mg Tablet, 1 TAB PO QHS, #90 TAB 3 Refills 03/03/18 Metoprolol Tartrate (METOPROLOL TARTRATE) 50 Mg Tablet, 1 TAB PO BID, #60 TAB 5 Refills 03/03/18 Famotidine (FAMOTIDINE) 20 Mg Tablet, 20 MG PO HS, TAB 03/03/18 Calcium Carbonate (Calcium Antacid) 215 Mg Tab.chew, 500 MG PO, TAB.CHEW 03/03/18 Losartan/Hydrochlorothiazide (LOSARTAN-HCTZ 50-12.5 MG TAB) 1 Each Tablet, 1 TAB PO DAILY, #30 TAB 5 Refills 03/03/18 Loratadine (LORATADINE) 10 Mg Tablet, 1 TAB PO DAILY, #30 TAB 5 Refills 03/03/18 Levothyroxine Sodium (SYNTHROID) 137 Mcg Tablet, 1 TAB PO DAILY, #30 TAB 5 Refills 03/03/18 Insulin Aspart (NOVOLOG) 100 Unit/1 Ml Cartridge, 35 UNIT SQ TIDAC, EACH 03/03/18 Insulin Glargine,Hum.rec.anlog (LANTUS SOLOSTAR) 100 Unit/1 Ml Insuln.pen, 60 UNIT SQ QHS, #15 ML 3 Refills 03/03/18 Hydrocortisone Acetate (ANUSOL-HC) 25 Mg Supp.rect, 1 SUPP RC DAILY, #14 SUPP 03/02/18 Mag Hydrox/Al Hydrox/Simeth (MAALOX MAXIMUM STRENGTH SUSP) 355 Ml Oral.susp, 30 ML PO PRN Q6HRS PRN for GAS / BLOATING, MISC 03/02/18 Acetaminophen (TYLENOL) 325 Mg Tablet, 2 TAB PO PRN Q4HRS, #30 TAB 03/02/18 Gabapentin (GABAPENTIN) 400 Mg Capsule, 400 MG PO TID, CAP 03/02/18 Amlodipine Besylate (NORVASC) 5 Mg Tablet, 1 TAB PO DAILY, #30 TAB 5 Refills 03/02/18 Atorvastatin Calcium (ATORVASTATIN CALCIUM) 40 Mg Tablet, 1 TAB PO QHS, #90 TAB 3 Refills 03/02/18 Metoprolol Tartrate (METOPROLOL TARTRATE) 50 Mg Tablet, 1 TAB PO BID, #60 TAB 5 Refills 03/02/18 Famotidine (FAMOTIDINE) 20 Mg Tablet, 20 MG PO HS, TAB 03/02/18 Multivitamin (MULTIVITAMINS) 1 Each Tablet, 1 TAB PO DAILY, #90 TAB 3 Refills 03/02/18 Calcium Carbonate (CALCIUM ANTACID) 200 Mg Tab.chew, 2 TAB PO TID PRN PRN for INDIGESTION, TAB.CHEW 03/02/18 Losartan/Hydrochlorothiazide (LOSARTAN-HCTZ 50-12.5 MG TAB) 1 Each Tablet, 1 TAB PO DAILY, #30 TAB 5 Refills 03/02/18 Loratadine (LORATADINE) 10 Mg Tablet, 1 TAB PO DAILY, #30 TAB 5 Refills 03/02/18 Levothyroxine Sodium (SYNTHROID) 137 Mcg Tablet, 1 TAB PO DAILY, #30 TAB 5 Refills 03/02/18 Insulin Aspart (NOVOLOG) 100 Unit/1 Ml Vial, 35 UNIT SQ TIDAC, VIAL 03/02/18 Insulin Glargine,Hum.rec.anlog (Basaglar Kwikpen U-100) 100 Unit/1 Ml Insuln.pen , 60 UNIT SQ BID, EACH 03/02/18 Date of Onset Pt per historian due to underlying dementia. Denies pain of the wound or surrounding tissue. Pt denies hx of diabetic ulcers or difficulty in healing. States she has been eating and drinking well with normal output. Review of Systems: Negative ROS. Pt denies systemic symptoms including fever, chills, n/v. Physical Exam Pt awake and alert. NAD. VSS. Afebrile. Pt with 5x6 blood-filled bulla to medial aspect of right heel. Surrounding tissue free of erythema or edema. Pt denies pain with palpation. No LE edema noted bilat. BLE warm to touch with good cap refill, good color and equal pulses bilat. No other open wounds noted to remainder of body. Resp even and unlabored. Pt on RA, not requiring supplemental O2. Pt transfers with assistance and walks with 4 cane walker. A/P DFU to right ankle, presents as blood-filled, intact blister - x-rays negative - venous doppler negative for DVT - Duplex US negative - blister left intact - paint with Betadine and cover with adhesive foam dressing for protection. Change every 3 days or prn if dressing loose or saturated - ensure wound area is offloaded at all times. Heelmedix on while pt in chair, float heels while in bed. TIMBO Right: 0.8 SANTIAGO ALEXANDER [employer] LOCKSTITCH Mar 04, 2018 13:09
[2018-03-04 15:00] VITALS: BP 134/62
--- NOTE | 2018-03-04 18:17 | PDOC ---
Provider Note Provider Note (please see full dictation) 67 yo female with chronic kidney disease was admitted with blistered area on the right medial heel. This is consistent with a pressure injury with blood blister. She has moderate arterial insufficiency with some blunting of the distal arterial flow. There are no other areas of skin breakdown. She has no significant pain at this time. I would not recommend any arterial intervention at this time. Would continue protective measures with heel relief boot. She may f/u with me in 3-4 weeks as an outpatient. Would only recommend arterial intervention if this area does not heal. Do not feel that debridement is indicated at this time. JACOB PALOMO MD Mar 04, 2018 18:17
[2018-03-04 19:00] VITALS: BP 150/72
[2018-03-04] MEDS: FAMOTIDINE 20 MG TABLET. PO SCH (20:51)
[2018-03-04] MEDS: ATORVASTATIN CALCIUM 40 MG TABLET. PO SCH (20:52)
[2018-03-04] MEDS: ASCORBIC ACID 500 MG TABLET PO SCH (20:52)
[2018-03-04] MEDS: ENOXAPARIN 40 MG/0.4 ML SYRINGE. SQ SCH (20:57)
--- NOTE | 2018-03-04 21:03 | CONS ---
DATE OF CONSULTATION: 03/04/2018 CHIEF COMPLAINT: Right medial foot wound. HISTORY OF PRESENT ILLNESS: The patient is a 67-year-old female with hypertension, hyperlipidemia, diabetes, and chronic renal insufficiency who presents with a blistered area on the medial right foot. She reports that this has been present for at least a month. She denies any significant discomfort at this time. She denies any previous areas of similar skin breakdown. She denies any specific trauma to her foot. An arterial ultrasound showed some blunting of the Doppler waveforms in her popliteal and tibial arteries, but there were no focal areas of narrowing or occlusion identified. PAST MEDICAL HISTORY: 1. Hypertension. 2. Hyperlipidemia. 3. Diabetes. 4. Chronic kidney insufficiency (class 3). PAST SURGICAL HISTORY: 1. Cholecystectomy. 2. Tubal ligation. CURRENT MEDICATIONS: Please see detailed medication administration record for dosing details. She is taking vitamin C, lactobacillus, Pepcid, atorvastatin, insulin, linezolid, Zosyn, Lasix, hydrochlorothiazide, multivitamin, losartan, Zyrtec, Neurontin, metoprolol, amlodipine, levothyroxine, Lovenox, p.r.n. oxycodone. ALLERGIES: SULFA AND METRONIDAZOLE. SOCIAL HISTORY: She is living in a nursing facility. She notes smoking up to just less than a pack of cigarettes a day. She denies any alcohol use. FAMILY HISTORY: Noncontributory. REVIEW OF SYSTEMS: No recent fevers, chills, chest pain or shortness of breath. She denies any nausea, vomiting, diarrhea, constipation, hematochezia or melena. She denies any lower extremity discomfort. She denies any difficulty with urination or burning with urination. PHYSICAL EXAMINATION: GENERAL: This is a well-developed female, in no acute distress. VITAL SIGNS: Temperature 98.4, pulse 66, blood pressure 134/62, respirations 16. NECK: Supple, no lymphadenopathy. CARDIOVASCULAR: Regular rhythm. ABDOMEN: Obese, soft, nontender, nondistended, no palpable masses. EXTREMITIES: She has palpable radial and left popliteal pulses. Her pedal pulses are nonpalpable. She has no areas of skin breakdown or significant edema of her left leg or foot. She has a blistered area on her medial right heel with blood staining. No surrounding erythema or obvious signs of infection. No other areas of skin breakdown. This appears to be a fairly old blister. LABORATORY DATA: Significant for white blood cell 10.5, hemoglobin 11.4, platelet count of 352. Sodium 144, potassium 4.1, BUN 23, creatinine 1.7, glucose of 159. IMPRESSION: 1. Blistered lesion in the right medial heel consistent with possible pressure injury with a blood blister. 2. No evidence of obvious cellulitis or infection at this time. 3. Mild to moderate arterial insufficiency. 4. Chronic kidney disease (class 3). 5. Diabetes. 6. Hyperlipidemia. RECOMMENDATION: 1. I would continue protective measures to the right foot to keep pressure off of her right heel. 2. I do not feel that debridement is indicated at this time. 3. Although she has some arterial insufficiency, I do not feel that intervention is warranted at this time. Risks likely outweigh potential benefits. If the right medial heel blistered area worsens, I would be happy to reconsider intervention. 4. She may follow up with me as an outpatient in 3-4 weeks. JACOB PALOMO MD DR: JAJA/javier JOB#: [id number] / [id number] DIONNE Poole MD, ANNMARIE BAINS, Jessica Jaime MD, VENU MD
[2018-03-04 23:00] VITALS: BP 154/75
[2018-03-05 03:00] VITALS: BP 151/68
[2018-03-05 06:05] LABS: CREATININE 1.9 mg/dL (0.6-1.0); GFR 32.1; POTASSIUM 3.9 mmol/L (3.5-5.1)
[2018-03-05] MEDS: LEVOTHYROXINE 137 MCG TABLET PO SCH (06:37)
[2018-03-05] MEDS: PIPERACILLIN/TAZOBACTAM 3.375 GM in IV NORMAL SALINE 50ML 50 ML IV SCH ×2 (06:38→15:10)
[2018-03-05 07:00] VITALS: BP 138/58
[2018-03-05] MEDS: ASCORBIC ACID 500 MG TABLET PO SCH ×2 (08:26→20:54)
[2018-03-05] MEDS: LACTOBACILLUS RHAMNOSUS GG 1 CAPSULE. PO SCH ×2 (08:26→20:55)
[2018-03-05] MEDS: GABAPENTIN 400 MG CAPSULE. PO SCH ×2 (08:26→20:54)
[2018-03-05] MEDS: LOSARTAN POTASSIUM 50 MG TABLET. PO SCH (08:27)
[2018-03-05] MEDS: LINEZOLID 600 MG TABLET PO SCH ×2 (08:27→20:54)
[2018-03-05] MEDS: amLODIPine BESYLATE 5 MG TABLET PO SCH (08:28)
[2018-03-05] MEDS: MULTIVITAMIN with MINERAL TABLET. PO SCH (08:29)
[2018-03-05] MEDS: METOPROLOL TART IMMED RELEASE 50 MG TABLET. PO SCH ×2 (08:29→20:55)
[2018-03-05] MEDS: hydroCHLOROthiazide 12.5 MG CAPSULE PO SCH (08:29)
[2018-03-05] MEDS: FUROSEMIDE 40 MG/4 ML VIAL. IVP SCH ×2 (08:30→15:09)
[2018-03-05] MEDS: CETIRIZINE HCL 10 MG TABLET. PO SCH (08:34)
[2018-03-05] MEDS: INSULIN LISPRO 300 UNITS/3 ML INSULN.PEN. SQ SCH ×3 (08:42→17:11)
[2018-03-05] MEDS ORDERED: ONDANSETRON ODT 4 MG TAB.RAPDIS. PO PRN (09:15)
[2018-03-05] MEDS ORDERED: ONDANSETRON PF 4 MG/2 ML VIAL. IV PRN (09:15)
--- NOTE | 2018-03-05 10:05 | PDOC ---
Infectious Disease Note Subjective: Subjective pt says feels ok no f/c/n/v/d rt foot lesion remains the same ROS: ROS Negative except for above. Vital Signs: Vital Signs Vital Signs Date Time Temp Pulse Resp B/P (MAP) Pulse Ox O2 Delivery O2 Flow Rate FiO2 03/05/18 08:29 63 138/58 03/05/18 07:00 98.7 16 97 Room Air 98.7 Physical Exam: PHYSICAL EXAM GENERAL: Alert and oriented x 3 female sitting in chair, in no acute distress, cooperative. HEENT: Normocephalic, atraumatic, anicteric. No thrush. NECK: Supple. LUNGS: Decreased breath sounds at the bases. HEART: S1, S2. ABDOMEN: Soft, bowel sounds present, nontender. EXTREMITIES: Bilateral pedal edema, no cyanosis, no clubbing. Right heel shows a hemorrhagic blister. No surrounding redness or drainage noted. DERMATOLOGIC: No generalized rash. NEUROLOGIC: Alert and oriented x 2, intermittently confused. PSYCHIATRIC: Cooperative, appropriate mood, confused. MUSCULOSKELETAL: No gross deformity. Medications: Inpatient Meds: Current Medications Medications (Trade) Dose Ordered Sig/Sancho Start Time Stop Time Status Last Admin Dose Admin Acetaminophen (Tylenol) 650 mg PRN Q4HRS PRN 03/02/18 23:30 Al Hydroxide/Mg Hydroxide (Mylanta Plus Xs) 30 ml PRN Q6HRS PRN 03/02/18 23:30 Amlodipine Besylate (Norvasc) 5 mg DAILY 03/03/18 09:00 03/05/18 08:28 5 MG Ascorbic Acid (Vitamin C) 500 mg BID 03/04/18 21:00 03/05/18 08:26 500 MG Atorvastatin Calcium (Lipitor) 40 mg QHS 03/03/18 21:00 03/04/18 20:52 40 MG Calcium Carbonate/ Glycine (Tums) 400 mg TID PRN PRN 03/02/18 23:30 Cetirizine HCl (ZyrTEC) 10 mg DAILY 03/03/18 09:00 03/05/18 08:34 10 MG Dextrose (Dextrose 50%-Water Syringe) 12.5 gm PRN Q15MIN PRN 03/03/18 17:30 Enoxaparin Sodium (Lovenox 40mg Syringe) 40 mg QHS 03/02/18 23:45 03/04/18 20:57 40 MG Famotidine (Pepcid) 20 mg HS 03/03/18 21:00 03/04/18 20:51 20 MG Furosemide (Lasix) 40 mg [id number] 03/03/18 09:00 03/05/18 08:30 40 MG Gabapentin (Neurontin) 400 mg BID 03/03/18 09:00 03/05/18 08:26 400 MG Hydrochlorothiazide (Microzide) 12.5 mg DAILY 03/03/18 09:00 03/05/18 08:29 12.5 MG Hydrocortisone Acetate (Anucort-Hc) 25 mg PRN DAILY PRN 03/03/18 17:30 Influenza Virus Vaccine (Afluria Trivalent [id number] Syringe) 0.5 ml ONCE ONCE 03/03/18 09:00 03/03/18 09:01 DC Info (Do NOT chart on this placeholder) 1 each 1X ONCE 03/02/18 21:00 03/02/18 21:01 UNV Insulin Glargine (Lantus) 60 units BID 03/03/18 09:00 03/03/18 17:21 DC Insulin Human Lispro (HumaLOG) 0-9 UNITS TIDWMEALS 03/03/18 18:15 03/05/18 08:42 4 UNITS Lactobacillus Rhamnosus (Culturelle) 1 cap BID 03/03/18 21:00 03/05/18 08:26 1 CAP Levothyroxine Sodium (Synthroid) 137 mcg DAILY07 03/03/18 07:00 03/05/18 06:37 137 MCG Linezolid (Zyvox) 600 mg BID 03/03/18 14:00 03/05/18 08:27 600 MG Losartan Potassium (Cozaar) 50 mg DAILY 03/03/18 09:00 03/05/18 08:27 50 MG Metoprolol Tartrate (Lopressor) 50 mg BID 03/03/18 09:00 03/05/18 08:29 50 MG Multivitamins (Thera M Plus) 1 tab DAILY 03/03/18 09:00 03/05/18 08:29 1 TAB Ondansetron HCl (Zofran Odt) 4 mg PRN Q6HRS PRN 03/05/18 09:15 Ondansetron HCl (Zofran) 4 mg PRN Q6HRS PRN 03/05/18 09:15 Oxycodone HCl (Roxicodone) 5 mg PRN Q6HRS PRN 03/02/18 18:00 03/04/18 08:14 5 MG Piperacillin Sod/ Tazobactam Sod 3.375 gm/Sodium Chloride 50 ml @ 100 mls/hr Q8HRS 03/03/18 14:00 03/05/18 06:38 100 MLS/HR Potassium Chloride (Klor-Con) 40 meq 1X ONCE 03/02/18 23:45 03/02/18 23:46 DC 03/03/18 01:09 40 MEQ Sodium Chloride 1,000 ml @ 75 mls/hr [id number] 03/04/18 10:45 03/04/18 20:56 75 MLS/HR Labs: Lab Laboratory Tests Test 03/04/18 12:03 03/04/18 16:10 03/04/18 20:32 03/05/18 04:45 Glucose (Fingerstick) 233 mg/dL (70-99) 162 mg/dL (70-99) 175 mg/dL (70-99) Sodium Level 143 mmol/L (136-145) Potassium Level 3.9 mmol/L (3.5-5.1) Chloride Level 103 mmol/L (98-107) Carbon Dioxide Level 28 mmol/L (21-32) Anion Gap 12 (6-14) Blood Urea Nitrogen 25 mg/dL (7-20) Creatinine 1.9 mg/dL (0.6-1.0) Estimated GFR (Cockcroft-Gault) 32.1 Glucose Level 184 mg/dL (70-99) Calcium Level 9.0 mg/dL (8.5-10.1) Test 03/05/18 07:26 Glucose (Fingerstick) 197 mg/dL (70-99) Objective: Assessment: 1. Right heel hemorrhagic blister, onset unclear. 2. Mild cognitive disorder. 3. Hypertension. 4. Acute kidney injury on chronic kidney disease. 5. Diabetes mellitus. 6. Mild congestive heart failure. 7. Hypokalemia. Plan: Plan of Care DC Zosyn/ linezolid. Discharge on augmentin and doxycycline for 10 days will need wound care at [facility]. DIONNE GAMINO MD Mar 05, 2018 10:05
[2018-03-05] MEDS ORDERED: FURO-68 PO (10:06)
[2018-03-05] MEDS ORDERED: DOXY100C14 PO (10:06)
[2018-03-05] MEDS ORDERED: AMOX1TAB61 PO (10:06)
--- NOTE | 2018-03-05 10:09 | PDOC3 ---
Discharge Summary Visit Information Date of Admission: Mar 02, 2018 Date of Discharge: Mar 05, 2018 Admitting Diagnosis Comment: 1 Diabetic foot wound with cellulitis oft tissue swelling about the ankle and midfoot and ulceration at the posterior aspect of the calcaneus medially, there is no MRI evidence of acute osteomyelitis. 2. htn 3. hyperlipidemia 4. morbid obesity 5. acute chf DD 6. No focal arterial occlusion or significant focal stenosis is demonstrated although diffuse plaque and abnormal monophasic waveforms beyond the mid to distal superficial femoral arteries. Final Diagnosis Problems Medical Problems: (1) Diabetic foot ulcers Status: Acute Brief Hospital Course Allergies Allergies Coded Allergies Type Severity Reaction Last Updated Verified Sulfa (Sulfonamide Antibiotics) Allergy Intermediate itching 03/02/18 Yes metronidazole Allergy Intermediate 03/02/18 Yes Vital Signs Vital Signs Date Time Temp Pulse Resp B/P (MAP) Pulse Ox O2 Delivery O2 Flow Rate FiO2 03/05/18 08:29 63 138/58 03/05/18 07:00 98.7 16 97 Room Air 98.7 Lab Results Laboratory Tests Test 03/03/18 12:03 03/03/18 17:18 03/03/18 20:53 03/04/18 04:00 Glucose (Fingerstick) 150 mg/dL (70-99) 178 mg/dL (70-99) 220 mg/dL (70-99) White Blood Count 10.5 x10^3/uL (4.0-11.0) Red Blood Count 3.98 x10^6/uL (3.50-5.40) Hemoglobin 11.4 g/dL (12.0-15.5) Hematocrit 33.5 % (36.0-47.0) Mean Corpuscular Volume 84 fL (79-100) Mean Corpuscular Hemoglobin 29 pg (25-35) Mean Corpuscular Hemoglobin Concent 34 g/dL (31-37) Red Cell Distribution Width 15.9 % (11.5-14.5) Platelet Count 352 x10^3/uL (140-400) Neutrophils (%) (Auto) 54 % (31-73) Lymphocytes (%) (Auto) 35 % (24-48) Monocytes (%) (Auto) 7 % (0-9) Eosinophils (%) (Auto) 3 % (0-3) Basophils (%) (Auto) 1 % (0-3) Neutrophils # (Auto) 5.7 x10^3uL (1.8-7.7) Lymphocytes # (Auto) 3.7 x10^3/uL (1.0-4.8) Monocytes # (Auto) 0.7 x10^3/uL (0.0-1.1) Eosinophils # (Auto) 0.3 x10^3/uL (0.0-0.7) Basophils # (Auto) 0.1 x10^3/uL (0.0-0.2) Sodium Level 144 mmol/L (136-145) Potassium Level 4.1 mmol/L (3.5-5.1) Chloride Level 107 mmol/L (98-107) Carbon Dioxide Level 28 mmol/L (21-32) Anion Gap 9 (6-14) Blood Urea Nitrogen 23 mg/dL (7-20) Creatinine 1.7 mg/dL (0.6-1.0) Estimated GFR (Cockcroft-Gault) 36.5 Glucose Level 159 mg/dL (70-99) Calcium Level 8.5 mg/dL (8.5-10.1) Magnesium Level 1.9 mg/dL (1.8-2.4) Test 03/04/18 07:47 03/04/18 12:03 03/04/18 16:10 03/04/18 20:32 Glucose (Fingerstick) 163 mg/dL (70-99) 233 mg/dL (70-99) 162 mg/dL (70-99) 175 mg/dL (70-99) Test 03/05/18 04:45 03/05/18 07:26 Sodium Level 143 mmol/L (136-145) Potassium Level 3.9 mmol/L (3.5-5.1) Chloride Level 103 mmol/L (98-107) Carbon Dioxide Level 28 mmol/L (21-32) Anion Gap 12 (6-14) Blood Urea Nitrogen 25 mg/dL (7-20) Creatinine 1.9 mg/dL (0.6-1.0) Estimated GFR (Cockcroft-Gault) 32.1 Glucose Level 184 mg/dL (70-99) Calcium Level 9.0 mg/dL (8.5-10.1) Glucose (Fingerstick) 197 mg/dL (70-99) Laboratory Tests Test 03/04/18 12:03 03/04/18 16:10 03/04/18 20:32 03/05/18 04:45 Glucose (Fingerstick) 233 mg/dL (70-99) 162 mg/dL (70-99) 175 mg/dL (70-99) Sodium Level 143 mmol/L (136-145) Potassium Level 3.9 mmol/L (3.5-5.1) Chloride Level 103 mmol/L (98-107) Carbon Dioxide Level 28 mmol/L (21-32) Anion Gap 12 (6-14) Blood Urea Nitrogen 25 mg/dL (7-20) Creatinine 1.9 mg/dL (0.6-1.0) Estimated GFR (Cockcroft-Gault) 32.1 Glucose Level 184 mg/dL (70-99) Calcium Level 9.0 mg/dL (8.5-10.1) Test 03/05/18 07:26 Glucose (Fingerstick) 197 mg/dL (70-99) Brief Hospital Course Ms. Austin is a 67 old aa female with DM, admitted for cellulitis left heel,. SOme leg swelling that has been better since iV lasix BID by a colleague, I dcd on PO lasix 40 qD x 14 days, ALso cleare dby ID to go home back to [facility], doxy and augmentin x 10 days., Non toxic appearing, no fevers, no white ct, pt wants to go home, A few pain meds in case, Otherwise cont all doses of insulin, and anti BP regimen Sasha nd examined FUll code, dc 32 mins in dc coordination etc consults: ID< vasc sx Proc: MRI - no osteo FF up vasc sx in 3-4 weeks , protective.supprtive wound care Discharge Information Condition at Discharge: Improved, Stable Disposition/Orders: Other (snf) Scheduled Acetaminophen (Tylenol) 325 Mg Tablet, 2 TAB PO PRN Q4HRS, #30 (Reported) Entered as Reported by: GREGORIO ZAMARRIPA on 03/02/181812 Last Action: Continued on 03/02/182328 by ANNMARIE DACOSTA MD Amlodipine Besylate (Norvasc) 5 Mg Tablet, 1 TAB PO DAILY, #30 Ref 5 (Reported) Entered as Reported by: GREGORIO ZAMARRIPA on 03/02/181812 Last Action: Continued on 03/02/182328 by ANNMARIE DACOSTA MD Amlodipine Besylate (Norvasc) 5 Mg Tablet, 1 TAB PO DAILY, #30 Ref 5 (Reported) Entered as Reported by: CAMILLE FINNEY on 03/03/181 Last Taken: UNKNOWN on Unknown Date & Time Last Action: New Order on 03/03 by CAMILLE FINNEY Amoxicillin/Potassium Clav (Augmentin 875-125 Tablet) 1 Each Tablet, 1 TAB PO BID, #20 Prescribed by: HARLEY CEJA on 03/05/18 1006 Atorvastatin Calcium (Atorvastatin Calcium) 40 Mg Tablet, 1 TAB PO QHS, #90 Ref 3 (Reported) Entered as Reported by: GREGORIO ZAMARRIPA on 03/02/181812 Last Action: Continued on 03/02/182328 by ANNMARIE DACOSTA MD Atorvastatin Calcium (Atorvastatin Calcium) 40 Mg Tablet, 1 TAB PO QHS, #90 Ref 3 (Reported) Entered as Reported by: CAMILLE FINNEY on 03/03/181 Last Taken: UNKNOWN on Unknown Date & Time Last Action: New Order on 03/03 by CAMILLE FINNYE Doxycycline Monohydrate (Doxycycline Monohydrate) 100 Mg Capsule, 1 CAP PO BID, #20 Prescribed by: HARLEY CEJA on 03/05/18 1006 Famotidine (Famotidine) 20 Mg Tablet, 20 MG PO HS, (Reported) Entered as Reported by: GREGORIO ZAMARRIPA on 03/02/181812 Last Action: Continued on 03/02/182328 by ANNMARIE DACOSTA MD Famotidine (Famotidine) 20 Mg Tablet, 20 MG PO HS, (Reported) Entered as Reported by: CAMILLE FINNEY on 03/03/181 Last Taken: UNKNOWN on Unknown Date & Time Last Action: New Order on 03/03 by CAMILLE FINNEY Furosemide (Lasix) 40 Mg Tablet, 1 TAB PO DAILY, #14 Ref 5 Prescribed by: HARLEY CEJA on 03/05/18 100 Gabapentin (Gabapentin) 400 Mg Capsule, 400 MG PO TID, (Reported) Entered as Reported by: GREGORIO ZAMARRIPA on 03/02/181812 Last Action: Converted on 03/02/182328 by ANNMARIE DACOSTA MD Gabapentin (Gabapentin) 400 Mg Capsule, 400 MG PO TID, (Reported) Entered as Reported by: CAMILLE FINNEY on 03/03/181 Last Taken: UNKNOWN on Unknown Date & Time Last Action: New Order on 03/03 by CAMILLE FINNEY Hydrocortisone Acetate (Anusol-Hc) 25 Mg Supp.rect, 1 SUPP RC DAILY, #14 ( Reported) Entered as Reported by: GREGORIO ZAMARRIPA on 03/02/181812 Last Action: Converted on 03/02/182328 by ANNMARIE DACOSTA MD Hydrocortisone Acetate (Anusol-Hc) 25 Mg Supp.rect, 1 SUPP RC BID, #14 (Reported ) Entered as Reported by: CAMILLE FINNEY on 03/03/181 Last Taken: UNKNOWN on Unknown Date & Time Last Action: New Order on 03/03 by CAMILLE FINNEY Insulin Aspart (Novolog) 100 Unit/1 Ml Vial, 35 UNIT SQ TIDAC, (Reported) Entered as Reported by: GREGORIO ZAMARRIPA on 03/02/181812 Last Action: Converted on 03/02/182328 by ANNMARIE DACOSTA MD Insulin Aspart (Novolog) 100 Unit/1 Ml Cartridge, 35 UNIT SQ TIDAC, (Reported) Entered as Reported by: CAMILLE FINNEY on 03/03/181 Last Taken: UNKNOWN on Unknown Date & Time Last Action: New Order on 03/03 by CAMILLE FINNEY Insulin Glargine,Hum.rec.anlog (Basaglar Kwikpen U-100) 100 Unit/1 Ml Insuln.pen , 60 UNIT SQ BID, (Reported) Entered as Reported by: GREGORIO ZAMARRIPA on 03/02/181812 Last Action: Continued on 03/02/182328 by ANNMARIE DACOSTA MD Insulin Glargine,Hum.rec.anlog (Lantus Solostar) 100 Unit/1 Ml Insuln.pen, 60 UNIT SQ QHS, #15 Ref 3 (Reported) Entered as Reported by: CAMILLE FINNEY on 03/03/181 Last Taken: UNKNOWN on Unknown Date & Time Last Action: New Order on 03/03 by CAMILLE FINNEY Levothyroxine Sodium (Synthroid) 137 Mcg Tablet, 1 TAB PO DAILY, #30 Ref 5 ( Reported) Entered as Reported by: GREGORIO ZAMARRIPA on 03/02/181812 Last Action: Continued on 03/02/182328 by ANNMARIE DACOSTA MD Levothyroxine Sodium (Synthroid) 137 Mcg Tablet, 1 TAB PO DAILY, #30 Ref 5 ( Reported) Entered as Reported by: CAMILLE FINNEY on 03/03/181 Last Taken: UNKNOWN on Unknown Date & Time Last Action: New Order on 03/03 by CAMILLE FINNEY Loratadine (Loratadine) 10 Mg Tablet, 1 TAB PO DAILY, #30 Ref 5 (Reported) Entered as Reported by: GREGORIO ZAMARRIPA on 03/02/181812 Last Action: Converted on 03/02/182328 by ANNMARIE DACOSTA MD Loratadine (Loratadine) 10 Mg Tablet, 1 TAB PO DAILY, #30 Ref 5 (Reported) Entered as Reported by: CAMILLE FINNEY on 03/03/181 Last Taken: UNKNOWN on Unknown Date & Time Last Action: New Order on 03/03 by CAMILLE FINNEY Losartan/Hydrochlorothiazide (Losartan-Hctz 50-12.5 Mg Tab) 1 Each Tablet, 1 TAB PO DAILY, #30 Ref 5 (Reported) Entered as Reported by: GREGORIO ZAMARRIPA on 03/02/181812 Last Action: Converted on 03/02/182328 by ANNMARIE DACOSTA MD Losartan/Hydrochlorothiazide (Losartan-Hctz 50-12.5 Mg Tab) 1 Each Tablet, 1 TAB PO DAILY, #30 Ref 5 (Reported) Entered as Reported by: CAMILLE FINNEY on 03/03/181 Last Taken: UNKNOWN on Unknown Date & Time Last Action: New Order on 03/03 by CAMILLE FINNEY Metoprolol Tartrate (Metoprolol Tartrate) 50 Mg Tablet, 1 TAB PO BID, #60 Ref 5 (Reported) Entered as Reported by: GREGORIO ZAMARRIPA on 03/02/181812 Last Action: Continued on 03/02/182328 by ANNMARIE DACOSTA MD Metoprolol Tartrate (Metoprolol Tartrate) 50 Mg Tablet, 1 TAB PO BID, #60 Ref 5 (Reported) Entered as Reported by: CAMILLE FINNEY on 03/03/181 Last Taken: UNKNOWN on Unknown Date & Time Last Action: New Order on 03/03 by CAMILLE FINNEY Multivitamin (Multivitamins) 1 Each Tablet, 1 TAB PO DAILY, #90 Ref 3 (Reported) Entered as Reported by: GREGORIO ZAMARRIPA on 03/02/181812 Last Action: Converted on 03/02/182328 by ANNMARIE DACOSTA MD Scheduled PRN Calcium Carbonate (Calcium Antacid) 200 Mg Tab.chew, 2 TAB PO TID PRN PRN for INDIGESTION, (Reported) Entered as Reported by: GREGORIO ZAMARRIPA on 03/02/181812 Last Action: Continued on 03/02/182328 by ANNMARIE DACOSTA MD Mag Hydrox/Al Hydrox/Simeth (Maalox Maximum Strength Susp) 355 Ml Oral.susp, 30 ML PO PRN Q6HRS PRN for GAS / BLOATING, (Reported) Entered as Reported by: GREGORIO ZAMARRIPA on 03/02/181812 Last Action: Continued on 03/02/182328 by ANNMARIE DACOSTA MD Miscellaneous Medications Acetaminophen (Acetaminophen) 325 Mg Tablet, 650 MG PO, (Reported) Entered as Reported by: CAMILLE FINNEY on 03/03/181 Last Taken: UNKNOWN on Unknown Date & Time Last Action: New Order on 03/03 by CAMILLE FINNEY Calcium Carbonate (Calcium Antacid) 215 Mg Tab.chew, 500 MG PO, (Reported) Entered as Reported by: CAMILLE FINNEY on 03/03/181 Last Taken: UNKNOWN on Unknown Date & Time Last Action: New Order on 03/03 by CAMILLE FINNEY Mag Hydrox/Aluminum Hyd/Simeth (Maalox Advanced Suspension) 355 Ml Oral.susp, 355 ML PO, (Reported) Entered as Reported by: CAMILLE FINNEY on 03/03/181 Last Taken: UNKNOWN on Unknown Date & Time Last Action: New Order on 03/03 0002 by HARLEY SHARMA MD Mar 05, 2018 10:09
[2018-03-05 11:00] VITALS: BP 136/63
--- NOTE | 2018-03-05 13:39 | PDOC ---
Renal-Progress Notes Subjective Notes Notes NONE History of Present Illness Hx of present illness NO CHANGE Vitals Vitals Vital Signs Date Time Temp Pulse Resp B/P (MAP) Pulse Ox O2 Delivery O2 Flow Rate FiO2 03/05/18 11:00 98.6 66 18 136/63 (87) 90 Room Air 98.6 03/05/18 08:00 2.0 Weight Weight [ ] I.O. Intake and Output Intake and Output 03/05/18 07:00 Intake Total 2490 ml Balance 2490 ml Intake Oral 1440 ml IV Total 1050 ml # Voids 8 Labs Labs Laboratory Tests Test 03/04/18 16:10 03/04/18 20:32 03/05/18 04:45 03/05/18 07:26 Glucose (Fingerstick) 162 mg/dL (70-99) 175 mg/dL (70-99) 197 mg/dL (70-99) Sodium Level 143 mmol/L (136-145) Potassium Level 3.9 mmol/L (3.5-5.1) Chloride Level 103 mmol/L (98-107) Carbon Dioxide Level 28 mmol/L (21-32) Anion Gap 12 (6-14) Blood Urea Nitrogen 25 mg/dL (7-20) Creatinine 1.9 mg/dL (0.6-1.0) Estimated GFR (Cockcroft-Gault) 32.1 Glucose Level 184 mg/dL (70-99) Calcium Level 9.0 mg/dL (8.5-10.1) Test 03/05/18 11:06 Glucose (Fingerstick) 181 mg/dL (70-99) Review of Systems Constitutional: yes: alert, other (CONFUSED) Physical Exam General Appearance: no apparent distress Skin: warm Respiratory: bilateral CTA Heart: S1S2 Abdomen: soft, bowel sounds present Genitourinary: bladder flat Extremities: pulses present Neurology: alert, confused Musculoskeletal: Osteoarthritis Assessment Assessment IMP CKD STAGE 3-STABLE DM II HTN R FOOT WOUND PROB DEMENTIA PLAN WOUND CARE ANTIBIOTICS D/C PLANS NOTED DEE FRANK MD Mar 05, 2018 13:39
--- NOTE | 2018-03-05 14:54 | DISCH ---
DISCHARGE DISCHARGE INFORMATION: FINAL DIAGNOSIS Problems Medical Problems: (1) Diabetic foot ulcers Status: Acute CONDITION ON DISCHARGE: Stable CODE STATUS: Code Status: Full DETENTION: SNF STAY <30 DAYS: Yes HOSPICE: HOSPICE: No HOSPICE EVAL & TREAT: No POST DISCHARGE ORDERS: ACTIVITY ORDERS: Activity as tolerated WEIGHT BEARING STATUS: As tolerated DIET AFTER DISCHARGE: ADA CHECKS AFTER DISCHARGE: CHECKS AFTER DISCHARGE: Check blood press - daily TREATMENT/EQUIPMENT ORDERS: ADAPTIVE EQUIPMENT NEEDED: None Physical Therapy For: Evalulation/Treatment Occupational Therapy For: Evaluation/Treatment DISCHARGE MEDICATIONS: Home Meds Active Scripts Amoxicillin/Potassium Clav (AUGMENTIN 875-125 TABLET) 1 Each Tablet, 1 TAB PO BID, #20 TAB Prov:HARLEY CEJA MD 03/05/18 Doxycycline Monohydrate (DOXYCYCLINE MONOHYDRATE) 100 Mg Capsule, 1 CAP PO BID, #20 CAP Prov:HARLEY CEJA MD 03/05/18 Furosemide (LASIX) 40 Mg Tablet, 1 TAB PO DAILY, #14 TAB 5 Refills Prov:HARLEY CEJA MD 03/05/18 Reported Medications Hydrocortisone Acetate (ANUSOL-HC) 25 Mg Supp.rect, 1 SUPP RC BID, #14 SUPP 03/03/18 Mag Hydrox/Aluminum Hyd/Simeth (Maalox Advanced Suspension) 355 Ml Oral.susp, 355 ML PO, MISC 03/03/18 Acetaminophen (ACETAMINOPHEN) 325 Mg Tablet, 650 MG PO, TAB 03/03/18 Gabapentin (GABAPENTIN) 400 Mg Capsule, 400 MG PO TID, CAP 03/03/18 Amlodipine Besylate (NORVASC) 5 Mg Tablet, 1 TAB PO DAILY, #30 TAB 5 Refills 03/03/18 Atorvastatin Calcium (ATORVASTATIN CALCIUM) 40 Mg Tablet, 1 TAB PO QHS, #90 TAB 3 Refills 03/03/18 Metoprolol Tartrate (METOPROLOL TARTRATE) 50 Mg Tablet, 1 TAB PO BID, #60 TAB 5 Refills 03/03/18 Famotidine (FAMOTIDINE) 20 Mg Tablet, 20 MG PO HS, TAB 03/03/18 Calcium Carbonate (Calcium Antacid) 215 Mg Tab.chew, 500 MG PO, TAB.CHEW 03/03/18 Losartan/Hydrochlorothiazide (LOSARTAN-HCTZ 50-12.5 MG TAB) 1 Each Tablet, 1 TAB PO DAILY, #30 TAB 5 Refills 03/03/18 Loratadine (LORATADINE) 10 Mg Tablet, 1 TAB PO DAILY, #30 TAB 5 Refills 03/03/18 Levothyroxine Sodium (SYNTHROID) 137 Mcg Tablet, 1 TAB PO DAILY, #30 TAB 5 Refills 03/03/18 Insulin Aspart (NOVOLOG) 100 Unit/1 Ml Cartridge, 35 UNIT SQ TIDAC, EACH 03/03/18 Insulin Glargine,Hum.rec.anlog (LANTUS SOLOSTAR) 100 Unit/1 Ml Insuln.pen, 60 UNIT SQ QHS, #15 ML 3 Refills 03/03/18 Hydrocortisone Acetate (ANUSOL-HC) 25 Mg Supp.rect, 1 SUPP RC DAILY, #14 SUPP 03/02/18 Mag Hydrox/Al Hydrox/Simeth (MAALOX MAXIMUM STRENGTH SUSP) 355 Ml Oral.susp, 30 ML PO PRN Q6HRS PRN for GAS / BLOATING, MISC 03/02/18 Acetaminophen (TYLENOL) 325 Mg Tablet, 2 TAB PO PRN Q4HRS, #30 TAB 03/02/18 Gabapentin (GABAPENTIN) 400 Mg Capsule, 400 MG PO TID, CAP 03/02/18 Amlodipine Besylate (NORVASC) 5 Mg Tablet, 1 TAB PO DAILY, #30 TAB 5 Refills 03/02/18 Atorvastatin Calcium (ATORVASTATIN CALCIUM) 40 Mg Tablet, 1 TAB PO QHS, #90 TAB 3 Refills 03/02/18 Metoprolol Tartrate (METOPROLOL TARTRATE) 50 Mg Tablet, 1 TAB PO BID, #60 TAB 5 Refills 03/02/18 Famotidine (FAMOTIDINE) 20 Mg Tablet, 20 MG PO HS, TAB 03/02/18 Multivitamin (MULTIVITAMINS) 1 Each Tablet, 1 TAB PO DAILY, #90 TAB 3 Refills 03/02/18 Calcium Carbonate (CALCIUM ANTACID) 200 Mg Tab.chew, 2 TAB PO TID PRN PRN for INDIGESTION, TAB.CHEW 03/02/18 Losartan/Hydrochlorothiazide (LOSARTAN-HCTZ 50-12.5 MG TAB) 1 Each Tablet, 1 TAB PO DAILY, #30 TAB 5 Refills 03/02/18 Loratadine (LORATADINE) 10 Mg Tablet, 1 TAB PO DAILY, #30 TAB 5 Refills 03/02/18 Levothyroxine Sodium (SYNTHROID) 137 Mcg Tablet, 1 TAB PO DAILY, #30 TAB 5 Refills 03/02/18 Insulin Aspart (NOVOLOG) 100 Unit/1 Ml Vial, 35 UNIT SQ TIDAC, VIAL 03/02/18 Insulin Glargine,Hum.rec.anlog (Basaglar Kwikpen U-100) 100 Unit/1 Ml Insuln.pen , 60 UNIT SQ BID, EACH 03/02/18 HARLEY CEJA MD Mar 05, 2018 14:53
[2018-03-05 15:00] VITALS: BP 134/90
[2018-03-05] MEDS: oxyCODONE IR 5 MG TABLET PO PRN (15:17)
[2018-03-05] MEDS: IV NORMAL SALINE 1000ML BAG 1,000 ML IV SCH (17:06)
[2018-03-05 19:00] VITALS: BP 144/110
[2018-03-05] MEDS: ATORVASTATIN CALCIUM 40 MG TABLET. PO SCH (20:54)
[2018-03-05] MEDS: FAMOTIDINE 20 MG TABLET. PO SCH (20:54)
[2018-03-05 20:55] VITALS: BP 144/110
[2018-03-05] MEDS: ENOXAPARIN 40 MG/0.4 ML SYRINGE. SQ SCH (20:56)
== END 2018-03-05 21:00 | disposition home or self-care (01) | DRG 637 ==
LOC: ER 17:16 → 4 NORTH 17:55
PROVIDERS: ADMIT Family Medicine; ATTEND Family Medicine
DX: E11.621 Type 2 diabetes mellitus with foot ulcer (principal); I50.33 Acute on chronic diastolic (congestive) heart failure; I13.0 Hypertensive heart and chronic kidney disease with heart failure and stage 1 through stage 4 chronic kidney disease, or unspecified chronic kidney disease; L03.116 Cellulitis of left lower limb; L97.419 Non-pressure chronic ulcer of right heel and midfoot with unspecified severity; N17.9 Acute kidney failure, unspecified; E11.628 Type 2 diabetes mellitus with other skin complications; M19.90 Unspecified osteoarthritis, unspecified site; E11.40 Type 2 diabetes mellitus with diabetic neuropathy, unspecified; E11.22 Type 2 diabetes mellitus with diabetic chronic kidney disease; E66.01 Morbid (severe) obesity due to excess calories; N18.3 Chronic kidney disease, stage 3 (moderate); F09 Unspecified mental disorder due to known physiological condition; S90.821A Blister (nonthermal), right foot, initial encounter; X58.XXXA Exposure to other specified factors, initial encounter; E78.5 Hyperlipidemia, unspecified; F17.210 Nicotine dependence, cigarettes, uncomplicated; E87.6 Hypokalemia; I77.1 Stricture of artery; Z68.38 Body mass index [BMI] 38.0-38.9, adult; Y93.89 Activity, other specified; Y92.89 Other specified places as the place of occurrence of the external cause; Y99.8 Other external cause status; Z82.49 Family history of ischemic heart disease and other diseases of the circulatory system; Z90.49 Acquired absence of other specified parts of digestive tract; Z83.3 Family history of diabetes mellitus; Z88.2 Allergy status to sulfonamides; Z88.8 Allergy status to other drugs, medicaments and biological substances; Z79.899 Other long term (current) drug therapy; Z23 Encounter for immunization
CPT/HCPCS: 36415; 73630; 73718; 80048; 82962; 83735; 83880; 84134; 84439; 85025; 87641; 93306; 93925; 93970; J1650; J1815; J1940; J2543; J7030; 99285-25